=== PATIENT | male | born 1960 | race Caucasian/White ===

== ENCOUNTER 2019-04-17 07:59 | Outpatient (RCR) | payer SELFPAY | END 2019-04-18 00:01 | LOC: WOUND 07:59 | PROVIDERS: Family Provider Nurse Practitioner; Visit Provider Nurse Practitioner Family | DX: I87.2 Venous insufficiency (chronic) (peripheral) (principal); L97.822 Non-pressure chronic ulcer of other part of left lower leg with fat layer exposed; I96 Gangrene, not elsewhere classified | CPT/HCPCS: 11042 ×3; 29581 ==

== ENCOUNTER 2019-05-17 08:05 | Outpatient (RCR) | payer SELFPAY | END 2019-05-19 23:59 | disposition home or self-care (01) | LOC: WOUND 08:05 | PROVIDERS: Family Provider Nurse Practitioner; PCP Nurse Practitioner; Visit Provider Nurse Practitioner Family | DX: I87.2 Venous insufficiency (chronic) (peripheral) (principal); L97.822 Non-pressure chronic ulcer of other part of left lower leg with fat layer exposed | CPT/HCPCS: 11042; 87070; 87077; 87176; 87186; 87205 ==

== ENCOUNTER 2019-06-14 11:02 | Outpatient (RCR) | payer SELFPAY | END 2019-06-17 23:59 | disposition home or self-care (01) | LOC: WOUND 11:02 | PROVIDERS: Family Provider Nurse Practitioner; PCP Nurse Practitioner; Visit Provider Nurse Practitioner Family | DX: I87.2 Venous insufficiency (chronic) (peripheral) (principal); L97.822 Non-pressure chronic ulcer of other part of left lower leg with fat layer exposed | CPT/HCPCS: 11042; 87070; 87077; 87176; 87186; 87205 ==

== ENCOUNTER → 2019-07-05 08:28 | Outpatient (BNVA) | payer SELFPAY | PROVIDERS: Family Provider Nurse Practitioner; PCP Nurse Practitioner; Visit Provider Nurse Practitioner | DX: D69.9 Hemorrhagic condition, unspecified (principal); Z79.01 Long term (current) use of anticoagulants | CPT/HCPCS: 85610 ==

== ENCOUNTER 2019-07-06 14:05 | Outpatient (RCR) | payer SELFPAY | END 2019-07-18 23:59 | disposition home or self-care (01) | LOC: WOUND 14:05 | PROVIDERS: Family Provider Nurse Practitioner; PCP Nurse Practitioner; Visit Provider Nurse Practitioner Family | DX: I87.2 Venous insufficiency (chronic) (peripheral) (principal); L97.822 Non-pressure chronic ulcer of other part of left lower leg with fat layer exposed | CPT/HCPCS: 29581; 87070; 87077; 87176; 87186; 87205; 99214; G0463 ==

== ENCOUNTER 2019-07-20 13:21 | Outpatient (RCR) | payer SELFPAY | END 2019-08-17 23:59 | disposition home or self-care (01) | LOC: WOUND 13:21 | PROVIDERS: Family Provider Nurse Practitioner; PCP Nurse Practitioner; Visit Provider Nurse Practitioner Family | DX: Z09 Encounter for follow-up examination after completed treatment for conditions other than malignant neoplasm (principal) | CPT/HCPCS: 99214; A6545; G0463 ==

== ENCOUNTER → 2019-09-01 10:25 | Outpatient (BNVA) | payer SELFPAY | PROVIDERS: Family Provider Nurse Practitioner; PCP Nurse Practitioner; Visit Provider Nurse Practitioner | DX: D69.9 Hemorrhagic condition, unspecified (principal); Z79.01 Long term (current) use of anticoagulants | CPT/HCPCS: 85610 ==

== ENCOUNTER → 2019-10-10 09:22 | Outpatient (BNVA) | payer SELFPAY | PROVIDERS: Family Provider Nurse Practitioner; PCP Nurse Practitioner; Visit Provider Nurse Practitioner | DX: Z79.01 Long term (current) use of anticoagulants (principal) | CPT/HCPCS: 85610 ==

== ENCOUNTER → 2020-01-19 14:09 | Outpatient (BNVA) | payer SELFPAY | PROVIDERS: Family Provider Nurse Practitioner; PCP Nurse Practitioner; Visit Provider Nurse Practitioner | DX: Z79.01 Long term (current) use of anticoagulants (principal); I10 Essential (primary) hypertension | CPT/HCPCS: 80053; 85610 ==

== ENCOUNTER 2020-01-21 11:05 | Emergency (ER) | payer SELFPAY ==
[2020-01-21 11:13] VITALS: BP 122/64; PULSE 60; RESP 14; TEMP 36.6; O2SAT 97; BMI 36.5
--- NOTE | 2020-01-21 11:26 | CTR_ITS ---
PROCEDURE INFORMATION: Exam: CT Head Without Contrast Exam date and time: 01/21/2020 12:00 PM Age: 59 years old Clinical indication: Pain; Numbness / parasthesia and weakness, facial; Left; Headache not specified; Additional info: Symptoms of acute stroke TECHNIQUE: Imaging protocol: Computed tomography of the head without contrast. Radiation optimization: All CT scans at this facility use at least one of these dose optimization techniques: automated exposure control; mA and/or kV adjustment per patient size (includes targeted exams where dose is matched to clinical indication); or iterative reconstruction. COMPARISON: No relevant prior studies available. RADIATION DOSE METRICS: Total DLP (mGy-cm): 882.67 FINDINGS: Brain: Symmetric prominence of the cortical and cerebellar sulci. No acute cortical infarct, mass effect, or intracranial hemorrhage. Poorly defined hypodensity in the central lizzette (series 2: Image 14 and series 602: Image 21), which can be better characterized with MRI if clinically indicated. Cerebral ventricles: Normal configuration of the ventricles. Bones/joints: No acute calvarial pathology. Paranasal sinuses: No sinus fluid. Mastoid air cells: No mastoid effusion. Soft tissues: Punctate cutaneous calcifications and mild infiltration of subcutaneous fat about the left vertex.. CT/CT head wo con* [id number] IMPRESSION: 1. No acute cortical infarct or intracranial hemorrhage. 2. Poorly defined hypodensity in the central lizzette (series 2: Image 14 and series 602: Image 21), which can be better characterized with MRI if clinically indicated. Radiation Dose CTDIVOL = (mGy): DLP = 882.67 (mGy-cm)
[2020-01-21 11:41] LABS: Basophils % 0.6 %; Eosinophils # 0.1 10^3/uL (0.0-0.8); Hematocrit 39.3 % (42.0-52.0); Hemoglobin 12.5 g/dL (11.7-16.6); Lymphocytes # 1.1 10^3/uL (0.8-4.8); Lymphocytes % 33.1 %; Mean Corpuscular HGB Conc 31.8 g/dL (30.0-36.0); Mean Corpuscular Hemoglobin 28.3 pg (28.0-34.0); Mean Corpuscular Volume 89.1 fL (80-94); Mean Platelet Volume 9.6 fL (7.4-10.4); Monocytes # 0.3 10^3/uL (0.2-0.9); Monocytes % 7.8 %; Neutrophils # 1.83 10^3/uL (1.8-7.7); Neutrophils % 55.2 %; Nucleated Red Blood Cells % 0 %; Platelet Count 157 10^3/cmm (130-400); Red Blood Count 4.41 10^6/uL (4.1-5.3); Red Cell Distribution Width 13.6 % (12.1-15.1); White Blood Count 3.3 10^3/uL (4.0-10.0)
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
[2020-01-21 11:45] LABS: INR 1.18 (0.8-1.2)
[2020-01-21 12:05] VITALS: BP 106/58; PULSE 67; O2SAT 97
[2020-01-21 12:11] LABS: Glucose Point of Care 85 mg/dL (70-110)
[2020-01-21 12:37] LABS: Alanine Aminotransferase 26 U/L (0-41); Albumin Level 4.2 g/dL (3.5-5.2); Alkaline Phosphatase 34 IU/L (40-130); Aspartate Amino Transferase 35 U/L (0-40); Blood Urea Nitrogen 15 mg/dL (8-23); Carbon Dioxide 23 mmol/L (22-29); Chloride 106 mmol/L (98-107); Globulin 2.5 g/dL (1.3-4.6); Glomerular Filtration Rate 98.6 mL/min (90-130); Glucose 85 mg/dL (65-115); Osmolality Calculated 288 mOsm/kg (285-295); Sodium 139 mmol/L (136-145); Total Bilirubin 0.6 mg/dL (0.15-1.2); Total Protein 6.7 g/dL (6.6-8.7)
[2020-01-21 13:30] VITALS: BP 114/68; O2SAT 99
[2020-01-21 14:05] VITALS: BP 125/76; PULSE 53; O2SAT 99
[2020-01-21 14:45] LABS: Add Urine Microscopic? NO
[2020-01-21 14:47] LABS: Bilirubin Urine Neg (Negative); Blood Urine Neg (Negative); Glucose Urine UA Norm (Normal); Ketones Urine Negative (Negative); Leukocyte Esterase Urine Negative (Negative); Nitrate Urine Negative (Negative); Protein Urine Neg (Negative); Specific Gravity, Urine 1.015 (1.005-1.030); Urine Appearance Clear (CLEAR); Urine Color Yellow (Yellow); Urobilinogen Urine Norm (Negative); pH Urine 7 (5-7)
[2020-01-21 14:56] VITALS: BP 117/63; PULSE 66; RESP 17; O2SAT 100
[2020-01-21 14:56] LABS: Amphetamines Screen Urine Negative (Negative); Barbiturates Screen Urine Negative (Negative); Benzodiazepines Screen Urine Negative (Negative); Cocaine Screen Urine Negative (Negative); Opiate Screen Urine Negative (Negative); PCP Screen Urine Negative (Negative); THC Screen Urine Negative (Negative)
== END 2020-01-21 15:10 | disposition home or self-care (01) ==
PROVIDERS: Emergency Provider Student in an Organized Health Care Education/Training Program; PCP Nurse Practitioner
DX: G45.9 Transient cerebral ischemic attack, unspecified (principal); R93.89 Abnormal findings on diagnostic imaging of other specified body structures; Z79.01 Long term (current) use of anticoagulants; I10 Essential (primary) hypertension; Z87.891 Personal history of nicotine dependence
CPT/HCPCS: 12345; 36416; 70450; 80053; 80306; 81003; 82962; 85025; 85610; 85730; 99283; 99284

== ENCOUNTER → 2020-01-23 09:20 | Outpatient (BNVA) | payer SELFPAY | PROVIDERS: PCP Nurse Practitioner; Visit Provider Nurse Practitioner | DX: Z23 Encounter for immunization (principal); Z79.01 Long term (current) use of anticoagulants; G47.9 Sleep disorder, unspecified; R90.89 Other abnormal findings on diagnostic imaging of central nervous system; G45.9 Transient cerebral ischemic attack, unspecified | CPT/HCPCS: 85610 ==

== ENCOUNTER → 2020-02-28 09:53 | Outpatient (BNVA) | payer SELFPAY | PROVIDERS: PCP Nurse Practitioner; Visit Provider Nurse Practitioner | DX: Z86.718 Personal history of other venous thrombosis and embolism (principal); S81.809A Unspecified open wound, unspecified lower leg, initial encounter; Z79.01 Long term (current) use of anticoagulants; I10 Essential (primary) hypertension; S81.802A Unspecified open wound, left lower leg, initial encounter; X58.XXXA Exposure to other specified factors, initial encounter | CPT/HCPCS: 80053; 85025; 85610 ==

== ENCOUNTER 2020-03-04 13:57 | Outpatient (CLI) | payer SELFPAY | END 2020-03-04 13:58 | disposition home or self-care (01) | LOC: WOUND 13:58 | PROVIDERS: PCP Nurse Practitioner; Visit Provider Nurse Practitioner Family | DX: I87.2 Venous insufficiency (chronic) (peripheral) (principal); L97.822 Non-pressure chronic ulcer of other part of left lower leg with fat layer exposed | CPT/HCPCS: 11042; 87070; 87077; 87176; 87186; 87205; A6545; G0463 ==

== ENCOUNTER 2020-03-07 15:16 | Outpatient (CLI) | payer SELFPAY | END 2020-03-07 15:17 | disposition home or self-care (01) | LOC: WOUND 15:17 | PROVIDERS: PCP Nurse Practitioner; Visit Provider Nurse Practitioner Family | DX: I87.2 Venous insufficiency (chronic) (peripheral) (principal); L97.822 Non-pressure chronic ulcer of other part of left lower leg with fat layer exposed | CPT/HCPCS: 29581 ==

== ENCOUNTER 2020-03-11 15:10 | Outpatient (CLI) | payer SELFPAY | END 2020-03-11 15:11 | disposition home or self-care (01) | LOC: WOUND 15:11 | PROVIDERS: PCP Nurse Practitioner; Visit Provider Nurse Practitioner Family | DX: I87.2 Venous insufficiency (chronic) (peripheral) (principal); L97.822 Non-pressure chronic ulcer of other part of left lower leg with fat layer exposed | CPT/HCPCS: 11042 ==

== ENCOUNTER 2020-03-18 14:51 | Outpatient (CLI) | payer SELFPAY | END 2020-03-18 14:52 | disposition home or self-care (01) | LOC: WOUND 14:52 | PROVIDERS: PCP Nurse Practitioner; Visit Provider Thoracic Surgery (Cardiothoracic Vascular Surgery) | DX: I87.2 Venous insufficiency (chronic) (peripheral) (principal); L97.822 Non-pressure chronic ulcer of other part of left lower leg with fat layer exposed | CPT/HCPCS: 11042 ==

== ENCOUNTER 2020-03-25 14:54 | Outpatient (CLI) | payer SELFPAY | END 2020-03-25 14:55 | disposition home or self-care (01) | LOC: WOUND 14:55 | PROVIDERS: PCP Nurse Practitioner; Visit Provider Nurse Practitioner Family | DX: I87.2 Venous insufficiency (chronic) (peripheral) (principal); L97.822 Non-pressure chronic ulcer of other part of left lower leg with fat layer exposed | CPT/HCPCS: 11042 ==

== ENCOUNTER 2020-04-01 14:03 | Outpatient (CLI) | payer SELFPAY | END 2020-04-01 14:04 | disposition home or self-care (01) | LOC: WOUND 14:04 | PROVIDERS: PCP Nurse Practitioner; Visit Provider Nurse Practitioner Family | DX: I87.2 Venous insufficiency (chronic) (peripheral) (principal); L97.822 Non-pressure chronic ulcer of other part of left lower leg with fat layer exposed | CPT/HCPCS: 11042 ==

== ENCOUNTER 2020-04-08 14:27 | Outpatient (CLI) | payer SELFPAY | END 2020-04-08 14:28 | disposition home or self-care (01) | LOC: WOUND 14:29 | PROVIDERS: PCP Nurse Practitioner; Visit Provider Nurse Practitioner Family | DX: I87.2 Venous insufficiency (chronic) (peripheral) (principal); L97.822 Non-pressure chronic ulcer of other part of left lower leg with fat layer exposed | CPT/HCPCS: 11042; 87070; 87077; 87176; 87186; 87205 ==

== ENCOUNTER 2020-04-17 14:58 | Outpatient (CLI) | payer SELFPAY | END 2020-04-17 14:59 | disposition home or self-care (01) | LOC: WOUND 14:58 | PROVIDERS: PCP Nurse Practitioner; Visit Provider Nurse Practitioner Family | DX: I87.2 Venous insufficiency (chronic) (peripheral) (principal); L97.822 Non-pressure chronic ulcer of other part of left lower leg with fat layer exposed | CPT/HCPCS: 11042 ==

== ENCOUNTER 2020-04-25 09:34 | Outpatient (CLI) | payer SELFPAY | END 2020-04-25 09:35 | disposition home or self-care (01) | LOC: WOUND 09:35 | PROVIDERS: PCP Nurse Practitioner; Visit Provider Nurse Practitioner Family | DX: I87.2 Venous insufficiency (chronic) (peripheral) (principal); L97.822 Non-pressure chronic ulcer of other part of left lower leg with fat layer exposed | CPT/HCPCS: 11042 ==

== ENCOUNTER 2020-05-02 08:56 | Outpatient (CLI) | payer SELFPAY | END 2020-05-02 08:57 | disposition home or self-care (01) | LOC: WOUND 08:57 | PROVIDERS: PCP Nurse Practitioner; Visit Provider Nurse Practitioner Family | DX: I87.2 Venous insufficiency (chronic) (peripheral) (principal); L97.822 Non-pressure chronic ulcer of other part of left lower leg with fat layer exposed | CPT/HCPCS: 11042 ==

== ENCOUNTER 2020-05-09 08:45 | Outpatient (CLI) | payer SELFPAY | END 2020-05-09 08:46 | disposition home or self-care (01) | LOC: WOUND 08:45 | PROVIDERS: PCP Nurse Practitioner; Visit Provider Nurse Practitioner Family | DX: I87.2 Venous insufficiency (chronic) (peripheral) (principal); L97.822 Non-pressure chronic ulcer of other part of left lower leg with fat layer exposed | CPT/HCPCS: 11042 ==

== ENCOUNTER 2020-05-10 20:54 | Observation (INO) | payer SELFPAY ==
[2020-05-10 21:00] VITALS: BP 154/89; PULSE 77; RESP 20; TEMP 36.7; O2SAT 98; BMI 35.6
--- NOTE | 2020-05-10 21:03 | CTR_ITS ---
PROCEDURE INFORMATION: Exam: CT Head Without Contrast Exam date and time: 05/10/2020 9:05 PM Age: 59 years old Clinical indication: Speech disturbance; Patient HX: Slurred speech, left side facial droop; Additional info: AMS TECHNIQUE: Imaging protocol: Computed tomography of the head without contrast. Radiation optimization: All CT scans at this facility use at least one of these dose optimization techniques: automated exposure control; mA and/or kV adjustment per patient size (includes targeted exams where dose is matched to clinical indication); or iterative reconstruction. Other technique: STROKE PROTOCOL was implemented. COMPARISON: CT head wo con* [id number] 01/21/2020 12:13 PM RADIATION DOSE METRICS: Total DLP (mGy-cm): 1019.95 FINDINGS: Brain: There is volume loss.There is no evidence of infarct, alex-white matter differentiation is preserved. There is no hemorrhage or extra-axial collection. There is no mass. Cerebral ventricles: There is no hydrocephalus. Bones/joints: Unremarkable. No acute fracture. Paranasal sinuses: Visualized sinuses are unremarkable. No fluid levels. Mastoid air cells: Visualized mastoid air cells are well aerated. Soft tissues: Unremarkable. CT/CT head wo con* [id number] IMPRESSION: No intracranial lesion or injury and no change from prior scan. ASSESSMENT: ASPECTS ([place] Stroke Program Early CT Score) is 10. Radiation Dose CTDIVOL = (mGy): DLP = 1019.95 (mGy-cm)
--- NOTE | 2020-05-10 21:03 | XRR_ITS ---
PROCEDURE INFORMATION: Exam: XR Chest, 1 View Exam date and time: 05/10/2020 9:17 PM Age: 59 years old Clinical indication: Shortness of breath; Additional info: AMS TECHNIQUE: Imaging protocol: XR of the chest Views: 1 view. COMPARISON: CR Chest 1 [place] [id number] 11/10/2018 12:23 PM FINDINGS: Lungs: Unremarkable. No consolidation. Pleural space: Unremarkable. No pleural effusion. No pneumothorax. Heart/Mediastinum: Unremarkable. No cardiomegaly. Bones/joints: Unremarkable. XR/XR chest 1V portable [id number] IMPRESSION: No acute findings.
--- NOTE | 2020-05-10 21:04 | ECG_ITS ---
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
[2020-05-10 21:21] LABS: Basophils % 0.6 %; Eosinophils # 0.1 10^3/uL (0.0-0.8); Hematocrit 40.3 % (42.0-52.0); Hemoglobin 12.8 g/dL (11.7-16.6); Lymphocytes # 1.7 10^3/uL (0.8-4.8); Lymphocytes % 34.3 %; Mean Corpuscular HGB Conc 31.8 g/dL (30.0-36.0); Mean Corpuscular Hemoglobin 27.8 pg (28.0-34.0); Mean Corpuscular Volume 87.4 fL (80-94); Mean Platelet Volume 9.3 fL (7.4-10.4); Monocytes # 0.3 10^3/uL (0.2-0.9); Monocytes % 6.8 %; Neutrophils # 2.81 10^3/uL (1.8-7.7); Neutrophils % 56.1 %; Nucleated Red Blood Cells % 0 %; Platelet Count 150 10^3/cmm (130-400); Red Blood Count 4.61 10^6/uL (4.1-5.3); Red Cell Distribution Width 14.1 % (12.1-15.1)
[2020-05-10 21:36] LABS: ABG PCO2 41.2 mmHg (35-45); ABG PH Result 7.43 (7.35-7.45); Arterial Blood Gas Hematocrit 39.6 % (42-52); Base Excess ABG 2.6 mmol/L (-2.0-2.0); Blood Gas Allen Test Pos; Blood Gas Sample Site Radial, right; Blood Gas Sample Type Arterial; HCO3 ABG 27.3 mmol/L (22-26); PO2 ABG 92.7 mmHg (80.0-100.0)
[2020-05-10 21:43] LABS: Alanine Aminotransferase 21 U/L (0-41); Albumin Level 4.2 g/dL (3.5-5.2); Alkaline Phosphatase 40 IU/L (40-130); Anion Gap 15.4 (5-19); Aspartate Amino Transferase 19 U/L (0-40); Blood Urea Nitrogen 16 mg/dL (8-23); Carbon Dioxide 26 mmol/L (22-29); Chloride 100 mmol/L (98-107); Globulin 2.4 g/dL (1.3-4.6); Glomerular Filtration Rate 76.2 mL/min (90-130); Glucose 150 mg/dL (65-115); Magnesium 2.1 mg/dL (1.7-2.3); Osmolality Calculated 290 mOsm/kg (285-295); Potassium 3.4 mmol/L (3.5-5.1); Sodium 138 mmol/L (136-145); Total Bilirubin 0.4 mg/dL (0.15-1.2); Total Protein 6.6 g/dL (6.6-8.7)
[2020-05-10 21:44] VITALS: BP 140/74; PULSE 77; RESP 13; O2SAT 95
[2020-05-10 21:45] LABS: Troponin(5th) Baseline 9 ng/L (0-15)
[2020-05-10 21:49] LABS: Alcohol Level < 10 mg/dL (0-10)
[2020-05-10 22:23] LABS: Add Urine Microscopic? NO
[2020-05-10 22:27] LABS: Bilirubin Urine Neg (Negative); Blood Urine Neg (Negative); Glucose Urine UA Norm (Normal); Ketones Urine Negative (Negative); Leukocyte Esterase Urine Negative (Negative); Nitrate Urine Negative (Negative); Protein Urine Neg (Negative); Specific Gravity, Urine 1.015 (1.005-1.030); Urine Appearance Clear (CLEAR); Urine Color Yellow (Yellow); Urobilinogen Urine 1 mg/dL (Negative); pH Urine 6.5 (5-7)
[2020-05-10 22:57] VITALS: BP 134/66; PULSE 73; RESP 15; O2SAT 96
--- NOTE | 2020-05-10 23:04 | ECG_ITS ---
[facility] Test Date: 2020-05-10 Pat Name: Zeb Bowles Department: Room: Gender: Male Tobacco Baler: : 1960 Requested By: Benedict Orantes Order Number: [id number] Reading MD: KG DICKEY Measurements Intervals [place] Rate: 70 P: 18 HI: 209 QRS: 51 QRSD: 107 T: 54 QT: 389 QTc: 420 Interpretive Statements SINUS RHYTHM Compared to ECG 05/10/2020 21:35:38 No significant changes Electronically Signed On 05-11-2020 18:18:08 KITCHEN LEAD by KG DICKEY [email or web address]
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
--- NOTE | 2020-05-10 23:13 | CTR_ITS ---
PROCEDURE INFORMATION: Exam: CT Angiography Head With Contrast Exam date and time: 05/10/2020 1:12 AM Age: 59 years old Clinical indication: Speech disturbance and weakness; Patient HX: Slurred speech with left facial droop. ; Additional info: Stroke TECHNIQUE: Imaging protocol: Computed tomography angiography of the head with intravenous contrast. 3D rendering (Not supervised by radiologist): MIP and/or 3D reconstructed images were created by the technologist. Radiation optimization: All CT scans at this facility use at least one of these dose optimization techniques: automated exposure control; mA and/or kV adjustment per patient size (includes targeted exams where dose is matched to clinical indication); or iterative reconstruction. Contrast material: OMNI 350; Contrast volume: 95 ml; Contrast route: INTRAVENOUS (IV); COMPARISON: CT head wo con* [id number] 05/10/2020 9:06 PM RADIATION DOSE METRICS: Total DLP (mGy-cm): 2696.16 FINDINGS: ANTERIOR CIRCULATION: Right internal carotid artery: Unremarkable. Intracranial segment is patent with no significant stenosis. No aneurysm. Right middle cerebral artery: Unremarkable. No occlusion or significant stenosis. No aneurysm. Right anterior cerebral artery: Unremarkable. No occlusion or significant stenosis. No aneurysm. Left internal carotid artery: Unremarkable. Intracranial segment is patent with no significant stenosis. No aneurysm. Left middle cerebral artery: Unremarkable. No occlusion or significant stenosis. No aneurysm. Left anterior cerebral artery: Unremarkable. No occlusion or significant stenosis. No aneurysm. POSTERIOR CIRCULATION: Right vertebral artery: Unremarkable. No occlusion or significant stenosis. No aneurysm. Left vertebral artery: Unremarkable. No occlusion or significant stenosis. No aneurysm. Basilar artery: Unremarkable. No occlusion or significant stenosis. No aneurysm. Right posterior cerebral artery: Unremarkable. No occlusion or significant stenosis. No aneurysm. Left posterior cerebral artery: Unremarkable. No occlusion or significant stenosis. No aneurysm. Brain: No definite mass, mass effect, or midline shift. Cerebral ventricles: No ventriculomegaly. Bones/joints: Unremarkable. No acute fracture. Soft tissues: Unremarkable. IMPRESSION: No large vessel stenosis or occlusion. PROCEDURE INFORMATION: Exam: CT Angiography Neck With Contrast Exam date and time: 05/10/2020 1:12 AM Age: 59 years old Clinical indication: Speech disturbance and weakness; Patient HX: Slurred speech with left facial droop. ; Additional info: Stroke TECHNIQUE: Imaging protocol: Computed tomography angiography of the neck with intravenous contrast. 3D rendering (Not supervised by radiologist): MIP and/or 3D reconstructed images were created by the technologist. Radiation optimization: All CT scans at this facility use at least one of these dose optimization techniques: automated exposure control; mA and/or kV adjustment per patient size (includes targeted exams where dose is matched to clinical indication); or iterative reconstruction. Contrast material: OMNI 350; Contrast volume: 95 ml; Contrast route: INTRAVENOUS (IV); COMPARISON: CT head wo con* [id number] 05/10/2020 9:06 PM RADIATION DOSE METRICS: Total DLP (mGy-cm): 2696.16 FINDINGS: Right common carotid artery: No stenosis. No dissection or occlusion. Right internal carotid artery: No stenosis of the extracranial segment. No dissection or occlusion. Right external carotid artery: No occlusion or stenosis of the origin. Right vertebral artery: No stenosis. No dissection or occlusion. Left common carotid artery: No stenosis. No dissection or occlusion. Left internal carotid artery: No stenosis of the extracranial segment. No dissection or occlusion. Left external carotid artery: No occlusion or stenosis of the origin. Left vertebral artery: No stenosis. No dissection or occlusion. Bones/joints: No acute fracture. Soft tissues: Normal. No significant soft tissue swelling. CT/CT angio headneck* [id number] IMPRESSION: No stenosis or occlusion. REFERENCES: NASCET CRITERIA. The degree of internal carotid artery stenosis is based on NASCET criteria. Normal is no stenosis. Mild is less than 50% stenosis. Moderate is 50-69% stenosis. Severe is 70% to 99% stenosis. Total occlusion is no detectable patent lumen. Radiation Dose CTDIVOL = (mGy): DLP = 2696.16~2696.16 (mGy-cm)
--- NOTE | 2020-05-10 23:18 | PC.NURSE ---
EKG done at 2315 and shown to ER doctor
[2020-05-10 23:19] VITALS: BP 90/45; PULSE 70; RESP 17; O2SAT 96
[2020-05-10 23:39] LABS: Troponin 5 2HR 9.38 ng/L (0-15); Troponin 5 2HR Delta 0.38 ABS# (0-10)
[2020-05-10 23:49] LABS: Ammonia 37 umol/L (16-60)
[2020-05-11] VITALS (9 sets, daily range): BP systolic 95–137; BP diastolic 51–80; PULSE 60–71; RESP 16–18; TEMP 36.3–37.2; O2SAT 95–99
[2020-05-11 00:53] LABS: D Dimer 0.51 ug/mIFEU (0-0.59)
[2020-05-11 00:56] LABS: Thyroid Stimulating Hormone 2.57 uIU/mL (0.27-4.20)
[2020-05-11] MEDS: enoxaparin 120 mg/0.8 mL Syringe SUBCUT (01:11)
[2020-05-11] MEDS: potassium chloride ER 20 mEq Tablet PO (01:11)
[2020-05-11] MEDS: iohexol 350 mg/mL 100 mL Btl IV (01:40)
[2020-05-11] MEDS: sodium chloride 0.9% 1,000 ML 999 ML IV (01:45)
--- NOTE | 2020-05-11 03:04 | ECG_ITS ---
[facility] Test Date: 2020-05-11 Pat Name: Zeb Bowles Department: Room: 255 Gender: Male Curing Supervisor: : 1960 Requested By: Benedict Orantes Order Number: [id number] Reading MD: KG DICKEY Measurements Intervals [place] Rate: 62 P: 1 AK: 210 QRS: 48 QRSD: 91 T: 48 QT: 395 QTc: 404 Interpretive Statements SINUS RHYTHM WITH FIRST DEGREE AV BLOCK WARNING: DATA QUALITY MAY AFFECT INTERPRETATION Compared to ECG 05/10/2020 23:11:33 First degree AV block now present Electronically Signed On 05-11-2020 18:18:00 DOUBLE SPINDLE SHAPER OPERATOR by KG DICKEY [id number]
[2020-05-11 04:59] LABS: Troponin 5 6HR 9.67 ng/L (0-15); Troponin 5 6HR Delta 0.67 ng/L (0-12)
--- NOTE | 2020-05-11 09:46 | PC.PHAR ---
PTS STATES THE PT TAKES THE MEDICATIONS ENTERED-PTS STATES THE PT TAKES WARFARIN 11MG PO DAILY ON MON,TUES,WED,THURS,FRI AND 12MG PO DAILY ON SAT AND SUN AND HAS BEEN TAKING IT LIKE THAT FOR 2 YEARS-Cherry EL WROTE RX ON 04/10/2020 FOR 1-2 tab with 5mg tab to = 11mg 2 days and 12mg 5 days PTS STATES THATS NOT HOW THE PT HAS BEEN TAKING
[2020-05-11] MEDS: aspirin 81 mg EC Tablet PO (10:17)
[2020-05-11] MEDS: clopidogrel 75 mg Tablet PO (10:17)
[2020-05-11] MEDS: atorvastatin 40 mg Tablet 80 MG PO (10:17)
[2020-05-11] MEDS: warfarin 5 mg Tablet 10 MG PO (10:18)
[2020-05-11] MEDS: trazodone 50 mg Tablet PO (10:18)
[2020-05-11] MEDS: escitalopram 10 mg Tablet PO (10:18)
[2020-05-11] MEDS: ALPRAZolam 0.25 mg Tablet PO (10:43)
--- NOTE | 2020-05-11 10:45 | MRR_ITS ---
PROCEDURE INFORMATION: Exam: MR Head Without Contrast Exam date and time: 05/11/2020 10:45 AM Age: 59 years old Clinical indication: Patient HX: Stroke like symptoms. Slurred speech and left side facial droop TECHNIQUE: Imaging protocol: MR of the head without contrast. COMPARISON: CT head wo con* [id number] 05/10/2020 9:06 PM FINDINGS: Brain: There is mild chronic atrophy. On the diffusion-weighted images there is a punctate focus of abnormal signal in the left thalamus on series 7/image 15 and another tiny focus of increased signal intensity in the white matter along the left lateral ventricle posteriorly on series 7/image 16. These could represent very tiny acute nonhemorrhagic infarcts. No hemorrhage. No significant white matter disease. No edema. Cerebral ventricles: Normal. No ventriculomegaly. Bones/joints: Unremarkable. Paranasal sinuses: Normal as visualized. No acute sinusitis. Mastoid air cells: Normal as visualized. No mastoid effusion. Orbital cavity: Unremarkable. Soft tissues: Unremarkable. MR/MR head wo con* [id number] IMPRESSION: There are 2 punctate tiny foci of abnormal signal intensity on the diffusion-weighted scans in the left thalamus and along the left lateral ventricle posteriorly. These may represent tiny acute nonhemorrhagic infarcts. No other significant abnormalities are seen.
--- NOTE | 2020-05-11 12:29 | USCV_ITS ---
Zeb Bowles Age: 59 Gender: M : 1960 Exam Date: 05/11/2020 14:05 Ordering Phys: Flash Mendoza MD Technologist: Mag Dalton Exam Location: [facility] – [place], [place] Indication: cva BP: 115 / 73 HR: 72 Rhythm: Sinus Technical Quality: Fair MEASUREMENTS (Male / Female) Normal Values 2D ECHO LV Diastolic Diameter PLAX 4.4 cm 4.2 - 5.9 / 3.9 - 5.3 cm LV Systolic Diameter PLAX 2.9 cm LV Chamber Size 4.9 cm IVS Diastolic Thickness 2.1 cm 0.6 - 1.0 / 0.6 - 0.9 cm IVS Systolic Thickness 2.5 cm LVPW Diastolic Thickness 1.4 cm 0.6 - 1.0 / 0.6 - 0.9 cm LVPW Systolic Thickness 1.8 cm RV Chamber Size 2.5 cm LVOT Diameter 2.2 cm LV Ejection Fraction 2D Teich 61.4 % LV Ejection Fraction MOD 2C 72.2 % LV Ejection Fraction 2C AL 72.5 % LA Diameter 3.3 cm LA Width 3.6 cm LA Height 6.1 cm RA Width 2.5 cm RA Height 5.9 cm Aorta at Sinotubular Diameter 3.6 cm M-MODE LV Diastolic Diameter MM 4.8 cm 4.2 - 5.9 / 3.9 - 5.3 cm LV Systolic Diameter MM 2.6 cm LV Ejection Fraction MM Teich 78.3 % IVS Diastolic Thickness MM 0.9 cm 0.6 - 1.0 / 0.6 - 0.9 cm IVS Systolic Thickness MM 1.8 cm LVPW Diastolic Thickness MM 1.6 cm 0.6 - 1.0 / 0.6 - 0.9 cm LVPW Systolic Thickness MM 2.3 cm RV Diastolic Diameter MM 1.9 cm Aortic Annulus Diameter 3.7 cm LA Ao Ratio MM 1.1 MV E Point Septal Separation 0.9 cm DOPPLER AV Peak Velocity 132.0 cm/s LVOT Peak Velocity 98.0 cm/s AV Area Cont Eq vti 2.8 cm squared AV Area Cont Eq pk 2.7 cm squared MV Area PHT 2.6 cm squared Mitral E to A Ratio 1.0 MV E' Velocity 47.5 cm/s Mitral E to MV E' Ratio 8.5 Mitral E to LV E' Lateral Ratio 7.4 Mitral E to LV E' Septal Ratio 10.0 TV Peak E Velocity 69.0 cm/s PV Peak Velocity 76.0 cm/s RV Acceleration Time 0.1 s RV Ejection Time 0.3 s RV AcT/ET 0.4 FINDINGS Left Ventricle Normal left ventricular cavity size. Normal left ventricular systolic function. No regional wall motion abnormalities. Left ventricular ejection fraction is estimated at 65%. Grade I/IV diastolic dysfunction (abnormal relaxation filling pattern), normal to mildly elevated filling pressures. Right Ventricle The right ventricle is normal in size and function. RVSP could not be calculated due to incomplete tricuspid regurgitation velocity profile. Right Atrium The right atrium is normal in size. Left Atrium The left atrium is normal in size. Mitral Valve Structurally normal mitral valve without significant stenosis or prolapse. There is no mitral regurgitation. Aortic Valve Structurally normal aortic valve without significant sclerosis or stenosis. There is trace aortic regurgitation. Tricuspid Valve Structurally normal tricuspid valve without significant stenosis or regurgitation. Pulmonary artery systolic pressure is normal. Pulmonic Valve Structurally normal pulmonic valve without significant stenosis. There is no pulmonic regurgitation. Pericardium Normal pericardium without effusion. Aorta Normal ascending aorta dimension. CONCLUSIONS 1-Normal left ventricular cavity size. Normal left ventricular systolic function. No regional wall motion abnormalities. Left ventricular ejection fraction is estimated at 65%. Grade I/IV diastolic dysfunction (abnormal relaxation filling pattern), normal to mildly elevated filling pressures. 2-There is no pericardial effusion. 3-No significant valve abnormalities. 4-The right ventricle is normal in size and function. RVSP could not be calculated due to incomplete tricuspid regurgitation velocity profile. 5-Right atrial pressure is around 5 mm of mercury. 6-No significant change since the prior echocardiogram study of 10/08/2017. Ann Mcpherson MD (Electronically Signed) Final Date: 11 May 2020 15:57 S
[2020-05-11] MEDS: warfarin 3 mg Tablet PO (13:11)
--- NOTE | 2020-05-11 15:11 | PC.PT ---
PT note; attempted evaluation of patient proximally 1220, patient very fatigue post testing, and came in the hospital last night at midnight, patient has received Ativan for MRI, reattempted approximately 3 PM, patient sleeping soundly at that time, will reattempt evaluation tomorrow
[2020-05-11 17:04] LABS: Estmated Average Glucose 111; Hemoglobin A1C 5.5 % (4.0-6.0)
[2020-05-11] MEDS: LORazepam 2 mg/mL INJ 1 mL 1 MG IVP (17:08)
--- NOTE | 2020-05-11 20:02 | PM.PN ---
Subjective Subjective: Interval history: He is feeling little bit better. He is somewhat groggy after receiving anxiety medications to be able to complete the MRI study. He feels that his left side is a little bit stronger. His left upper extremity somewhat weaker compared to the left leg. Appears lower extremity has recovered more strength. headache, vision changes. Denies any denies any numbness. Denies chest pain or pressure, shortness of breath. Vitals/I&O/Wt Last Vital Signs Temp 98.2 F 05/11/20 19:41 Pulse 67 05/11/20 19:41 Resp 18 05/11/20 19:41 BP 137/75 05/11/20 19:41 Pulse Ox 95 05/11/20 19:41 05/11/20 05/11/20 05/11/20 06:59 14:59 22:59 Intake Total 50 / 50 240 / 240 240 / 480 Output Total 240 / 240 1525 / 1525 Balance -190 / -190 -1285 / -1285 240 / -1045 Weight last 48 hrs Weight 129.274 kg Physical Exam Const: COMMON NORMALS: no acute distress and patient oriented x3 OTHER: Groggy HENMT: COMMON NORMALS: oropharynx normal Neck/C-Spine: COMMON NORMALS: no meningeal signs and no JVD Resp: COMMON NORMALS: normal respiratory effort and clear to auscultation bilaterally AUSCULTATION: clear to auscultation bilaterally Cardio: COMMON NORMALS: no JVD, regular rhythm, S1 normal heart sound present, S2 normal heart sound present and No murmurs present (Cardio) RHYTHM: regular rhythm HEART SOUNDS: S1 normal heart sound present and S2 normal heart sound present GI: COMMON NORMALS: Normal to inspection, nondistended, normoactive bowel sounds present, Soft to palpation and non-tender PALPATION: Yes Soft to palpation Extremity: COMMON NORMALS: no joint enlargement and no pedal edema Neuro: COMMON NORMALS: patient oriented x3 and moves all extremities MENINGEAL SIGNS: Yes no meningeal signs COORDINATION/BALANCE: [id number]-[id number] test normal (With little bit more effort on the left side due to weakness) SPEECH: speech normal SENSORY EXAM: Yes extremities (Normal) and Normal double simultaneous stimulation for sensation MOTOR EXAM: Abnormal motor strength present (3+/5 on the left, minute if any pronator drift. 4/5 left lower extremity.) COORDINATION: wkherg-do-amny test normal (With little bit more effort on the left side due to weakness) OTHER: Visual guerrero full to confrontation. Noted minimal nystagmus, although he denies any vertigo. Skin: COMMON NORMALS: no rashes or lesions noted GENERAL SKIN EXAM: no rashes or lesions noted Data : 05/10/20 21:10 05/10/20 21:10 A&P Assessment and plan (1) Cerebrovascular accident: 2 small CVA identified on MRI brain, on the diffusion-weighted scans and left thalamus and along the left lateral ventricle posteriorly. It appears he has had a CVA several months ago. Discussed with him and his in setting of CVA initiation of aspirin, statin. We have not seen atrial fibrillation so far, although he is supposed to be on anticoagulation regardless due to VTE history. We did discuss that he has had quite significant time out of therapeutic window and I brought up consideration of DOAC. His intracranial and neck vessels are patent as per CTA. We are checking A1c as he has some hyperglycemia, although A1c appears to be normal. Blood pressure is not elevated, but appears to have some episodes of hypertension, Despite otherwise some soft blood pressures. Highest blood pressure 154/89 here. Discussed with him close monitoring of blood pressures, treatment district targets to prevent additional CVA in the future. We obtain TTE, discussed grade 1 diastolic dysfunction. No obvious thrombus identified. He does not have convincing evidence of embolic CVA, however, consideration may be given to ABELARDO as discussed with him and his . Possibly additional monitoring with 21-day monitor. Encouraged him to follow-up with urology who may on reassessment guide additional evaluation which may be beneficial. They verbalized understanding. Will be following up. He will be staying overnight for additional observation as he has been groggy after receiving Ativan after Xanax was not sufficient for treatment of anxiety during MRI study. In the meantime we will monitor blood pressures, cardiac rhythm. Request outpatient PT and OT. Status: Acute (2) Confusion: Resolved. Suspected related to CVA. Monitor mental status. Status: Acute Additional A&P Information Hypotension resolved. Hold diuretics for now. D-dimer was normal. 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 Additional 3 mg Coumadin today. Increase dosing to 12 mg daily for now. Follow-up with primary care provider for reassessment, additional dose adjustment. Hypokalemia: Repleted Attestations Medical Necessity Statement*: Additional evaluation following CVA and monitoring of mental status, blood pressures, heart rhythm, disposition planning with planned discharge in the morning. Coding Level of Care Code Acute Operations Accountant for Elliot Reed Diagnoses Cerebrovascular accident I63.9 Confusion R41.0
[2020-05-12] VITALS: BP 109/61; PULSE 66; RESP 16; TEMP 36.7; O2SAT 95
[2020-05-12 04:00] VITALS: BP 137/73; PULSE 65; RESP 16; TEMP 36.7; O2SAT 97
[2020-05-12 05:53] LABS: INR 1.25 (0.8-1.2)
[2020-05-12 07:15] VITALS: BP 127/69; PULSE 68; RESP 17; TEMP 36.3; O2SAT 95
[2020-05-12] MEDS: atorvastatin 40 mg Tablet 80 MG PO (08:08)
[2020-05-12] MEDS: clopidogrel 75 mg Tablet PO (08:09)
[2020-05-12] MEDS: aspirin 81 mg EC Tablet PO (08:09)
[2020-05-12] MEDS: escitalopram 10 mg Tablet PO (08:09)
[2020-05-12] MEDS: trazodone 50 mg Tablet PO (08:09)
[2020-05-12] MEDS: warfarin 10 mg Tablet PO (09:01)
[2020-05-12] MEDS: warfarin 3 mg Tablet 6 MG PO (09:01)
[2020-05-12 11:07] VITALS: BP 127/71; PULSE 77; RESP 18; TEMP 36.5; O2SAT 94
[2020-05-12 11:22] VITALS: BP 127/71; PULSE 77; RESP 18; TEMP 36.5; O2SAT 94
--- NOTE | 2020-05-12 14:08 | P.DS_ITS ---
Discharge Providers Date of Admission: 05/10/20 23:04 Date of Discharge: May 12, 2020 Attending Provider at Admission: Ann Sheehan MD Attending Provider at Discharge: Flash Mendoza Primary Care Provider: DEVIN Mcdermott Diagnoses at Discharge Discharge Diagnosis (1) Cerebrovascular accident: Status: Acute (2) Confusion: Status: Acute Reason for Visit Reason for Visit: stroke like symptoms Hospital Course Hospital Course Very pleasant 59-year-old gentleman was assessed following noted weakness in the left side, as well as few additional preceding no specific symptoms including some subjective light flashes, headache, and soft speech. Presentation noted initially hypotensive, initially appeared dehydrated. With unremarkable chest x-ray, EKG showing sinus rhythm, with potassium 3.4, normal ABG. Noted subtherapeutic INR. Head CT was obtained and did not show any intracranial lesion or injury. It had been more than 24 hours from the onset of symptoms, he did not qualify for acute intervention for acute CVA. CT angiogram of the head and neck was obtained, without finding of intracranial or neck vessel stenosis. He was additionally assessed by MRI brain with finding of 2 punctate tiny foci of abnormal signal intensity on the diffusion weighted scans in the left thalamus and along the left lateral ventricle posteriorly. Thought to be tiny acute nonhemorrhagic infarcts. His left-sided weakness persisted somewhat, although with improvement. He did well on swallow evaluation. On physical therapy evaluation he would benefit from outpatient physical therapy, and is provided also with a detailed home exercise program. With regards to stroke etiology and secondary prophylaxis, it is not entirely clear what the cause of his stroke was. His blood pressures although mostly soft/normal in the hospital, were noted to have occasional spikes, as high as 150/89, and so was discussed with him and spouse, possible episodic hypertension may play a role. A1c was assessed, and is not suggestive of underlying diabetes. He was monitored on telemetry, without finding of atrial fibrillation. He is supposed to be on anticoagulation at baseline due to history of VTE, presence of IVC filter. His warfarin, however, has been noted repeatedly subtherapeutic. We adjusted his warfarin dose here, gave larger dose yesterday, however, as discussed with him and his due to quite significant time outside of therapeutic window anticoagulation will benefit from change to possibly a DOAC. A prescription for Eliquis is given to him, and he if able to fill it understands to take the Eliquis instead, or if unable to fill it to then continue warfarin. They understand not to take both medications together. In case he cannot obtain Eliquis, he is instructed to increase warfarin dose for 3 days to 50 mg, subsequently resume at 12 mg daily, and schedule additional appointment for reassessment of INR early next week. Please follow-up regarding anticoagulation at the post discharge appointment. For secondary CVA prophylaxis he is also started on aspirin, and is also initiated on statin. As discussed with him and his he also referred to neurology for evaluation after a CVA, and for recommendations whether ABELARDO and/or prolonged cardiac monitoring may be of benefit. His echocardiogram showed normal ejection fraction, grade 1 diastolic dysfunction, which again may raise concern regarding intermittent hypertension. Physical Exam Const: COMMON NORMALS: no acute distress and patient oriented x3 OTHER: Awake, alert, pleasant. Reports he is feeling much better. About to work with physical therapy. HENMT: COMMON NORMALS: oropharynx normal Neck/C-Spine: COMMON NORMALS: no meningeal signs and no JVD Resp: COMMON NORMALS: normal respiratory effort and clear to auscultation bilaterally AUSCULTATION: clear to auscultation bilaterally Cardio: COMMON NORMALS: no JVD, regular rhythm, S1 normal heart sound present, S2 normal heart sound present and No murmurs present (Cardio) RHYTHM: regular rhythm HEART SOUNDS: S1 normal heart sound present and S2 normal heart sound present GI: COMMON NORMALS: Normal to inspection, nondistended, normoactive bowel sounds present, Soft to palpation and non-tender PALPATION: Yes Soft to palpation Extremity: COMMON NORMALS: no joint enlargement and no pedal edema Neuro: COMMON NORMALS: patient oriented x3 and moves all extremities MENINGEAL SIGNS: Yes no meningeal signs COORDINATION/BALANCE: cgzkvt-cm-dqjc test normal (With little bit more effort on the left side due to weakness) SPEECH: speech normal SENSORY EXAM: Yes extremities (Normal) and Normal double simultaneous stimulation for sensation MOTOR EXAM: Abnormal motor strength present (3-4/5 on the left, minute if any pronator drift. 4/5 left lower extremity.) COORDINATION: bjcxca-ih-uhvo test normal (With little bit more effort on the left side due to weakness) OTHER: Visual guerrero full to confrontation. Noted minimal nystagmus, although he denies any vertigo. Skin: COMMON NORMALS: no rashes or lesions noted GENERAL SKIN EXAM: no rashes or lesions noted Discharge Data Data Completed and Pending: Completed Studies During Hospitalization Category Date Time Status CT angio headneck * [id number] Stat Cat Scan 05/10/20 23:[address] head wo con* [id number] Urgent Cat Scan 05/10/20 21:03 Completed XR chest 1V tosin ble [id number] Urgent Exams 05/10/20 21:03 Completed MR head wo con* 7 [id number] Routine MRI 05/11/20 10:45 Completed CV echo complete* [id number] Routine Ultrasound 05/11/20 12:29 Completed Labs from last 24 hours 05/12/20 05/11/20 04:11 03:52 PT 16.10 H INR 1.25 H Estimat Average Gl ucose 111 Hemoglobin A1c 5.5 Vitals: Last Vital Signs Temp 97.7 F 05/12/20 11:22 Pulse 77 05/12/20 11:22 Resp 18 05/12/20 11:22 BP 127/71 05/12/20 11:22 Pulse Ox 94 05/12/20 11:22 Discharge Plan Discharge Patient Disposition: Home Condition: Stable Prescriptions: New atorvastatin 40 mg Tablet 80 mg PO DAILY Qty: 30 RF: 0 aspirin 81 mg Tablet,Delayed Release (Dr/Ec) 81 mg PO DAILY Qty: 30 RF: 0 Jantoven 3 mg Tablet 12 mg PO DAILY@1400 Qty: 120 RF: 0 apixaban 5 mg (74 tabs) tablets,dose pack See Rx Instructions .ROUTE .COMPLEX Qty: 74 RF: 3 Continued lisinopril 10 mg tablet 10 mg PO DAILY Qty: 30 RF: 5 magnesium oxide 400 mg magnesium capsule 400 mg PO BID Qty: 60 RF: 2 trazodone 50 mg tablet 50 mg PO DAILY@20 RF: 0 potassium gluconate 595 mg (99 mg) Tablet 595 mg PO DAILY@20 RF: 0 Centrum Men 8 mg iron- 200 mcg-600 mcg Tablet 1 tab PO DAILY RF: 0 escitalopram oxalate 10 mg tablet RF: 0 Discontinued chlorthalidone 25 mg tablet 25 - 50 mg PO DAILY@20 RF: 0 warfarin 1 mg tablet See Rx Instructions .ROUTE .COMPLEX RF: 0 Discharge Orders: Discharge Order (Routine); Ordered 05/12/20 Ordered By: Flash Mendoza Other Ambulatory Orders: Occupational Therapy Eval and Treat Outpatient (Order) Timeframe: 2 Days Facility: [facility] - Location: Occupational Therapy Ordered By: Flash Mendoza Physical Therapy Eval and Treat Outpatient (Order) Timeframe: 2 Days Facility: [facility] - Location: Physical Therapy Ordered By: Flash Mendoza Referrals: Daisy Esposito MD [Physician] - 1 week ([facility] will call Wednesday with an appointment for you to be seen for CVA.) Jignesh Avila FNP-C [Primary Care Provider] - 4-7 days ([facility] will call Wednesday to set up an appointment for you to be seen withiin one week. ) Discharge Diet: Cardiac Discharge Activity: Increase activity as tolerated and As per PT/OT instructions Patient Instructions: Warfarin (By mouth), Aspirin (By mouth), Atorvastatin (By mouth), Apixaban (By mouth), Ischemic Stroke (GEN), Stroke Stoplight Activity Restrictions/Additional Instructions: Please monitor your blood pressure 3 times daily, record values to bring to your appointment. If you are able to buy eliquis, please switch to this medication as we discussed and discontinue warfarin if you do. Do not take both Eliquis and Warfarin. Otherwise, please take 15mg (5x 3mg tablets) of warfarin for 3 days, then resume 12mg daily. Please follow-up closely with your primary care doctor to maintain warfarin in therapeutic range. Please note for now your dose is increased to 12 mg daily after additional 1 extra dose here in the hospital. Please call your primary care physician's office early next week to follow-up additional INR level. Please note that A1c test to check for diabetes has been ordered and results are pending, please follow-up with your primary care doctor on the final result. Please follow-up with neurology in office. Please discuss whether it may be beneficial to pursue additional assessment with ABELARDO (transesophageal echocardiogram), or other additional testing. Please note that you are started on aspirin in addition to warfarin. Please note together they may increase additionally risk of bleeding. Aspirin should help decrease the risk of stroke in the future. Please take extra caution to prevent any injury that may cause bleeding. Discharge Attestations Time Spent in Discharge Care*: greater than 30 min Quality Metrics Clinical Quality Measures During this hospital stay, did patient experience: Stroke Contraindication to Antithrombotic: Antithrombotic prescribed Contraindication to Anticoagulation: Anticoagulation prescribed Contraindication to Statin: Statin prescribed Coding Level of Care Code Acute Hot Metal Crane Operator for Elliot Reed Diagnoses Cerebrovascular accident I63.9 Confusion R41.0
== END 2020-05-12 11:24 | disposition home or self-care (01) ==
LOC: ER 23:05 → MEDSURG 05-11 07:15
PROVIDERS: Admitting Provider Internal Medicine; Emergency Provider Emergency Medicine; PCP Nurse Practitioner; Visit Provider Internal Medicine
DX: I63.9 Cerebral infarction, unspecified (principal); R41.0 Disorientation, unspecified; I95.9 Hypotension, unspecified; Z86.718 Personal history of other venous thrombosis and embolism; Z79.01 Long term (current) use of anticoagulants; Z86.711 Personal history of pulmonary embolism; E87.6 Hypokalemia
CPT/HCPCS: 12345; 36415; 36600; 70450; 70496; 70498; 70551; 71045; 80053; 80307; 81003; 82140; 82803; 83036; 83735; 84443; 84484; 85025; 85378; 85610; 93005; 93306; 96361; 96372; 96374; 97116; 97161; 99283; 99285; G0378; J1650; J2060; J7030; Q9967

== ENCOUNTER 2020-05-13 14:05 | Outpatient (CLI) | payer SELFPAY | END 2020-05-13 14:06 | disposition home or self-care (01) | LOC: LAB 12-11 12:27 | PROVIDERS: PCP Nurse Practitioner; Visit Provider Nurse Practitioner | DX: Z86.718 Personal history of other venous thrombosis and embolism (principal); M10.9 Gout, unspecified; M79.674 Pain in right toe(s); M20.11 Hallux valgus (acquired), right foot | CPT/HCPCS: 73630; 84550; 85610 ==

== ENCOUNTER 2020-05-16 08:48 | Outpatient (CLI) | payer SELFPAY | END 2020-05-16 08:49 | disposition home or self-care (01) | LOC: WOUND 08:48 | PROVIDERS: PCP Nurse Practitioner; Visit Provider Nurse Practitioner Family | DX: I87.2 Venous insufficiency (chronic) (peripheral) (principal); L97.822 Non-pressure chronic ulcer of other part of left lower leg with fat layer exposed | CPT/HCPCS: 11042 ==

== ENCOUNTER → 2020-05-21 09:30 | Outpatient (BNVA) | payer SELFPAY | PROVIDERS: PCP Nurse Practitioner; Visit Provider Nurse Practitioner | DX: Z79.01 Long term (current) use of anticoagulants (principal); Z86.718 Personal history of other venous thrombosis and embolism | CPT/HCPCS: 85610 ==

== ENCOUNTER 2020-05-23 08:56 | Outpatient (CLI) | payer SELFPAY | END 2020-05-23 08:57 | disposition home or self-care (01) | LOC: WOUND 08:57 | PROVIDERS: Visit Provider Nurse Practitioner Family | DX: I87.2 Venous insufficiency (chronic) (peripheral) (principal); L97.822 Non-pressure chronic ulcer of other part of left lower leg with fat layer exposed | CPT/HCPCS: 11042 ==

== ENCOUNTER 2020-05-30 09:31 | Outpatient (CLI) | payer SELFPAY | END 2020-05-30 09:32 | disposition home or self-care (01) | LOC: WOUND 09:31 | PROVIDERS: Visit Provider Nurse Practitioner Family | DX: I87.2 Venous insufficiency (chronic) (peripheral) (principal); L97.822 Non-pressure chronic ulcer of other part of left lower leg with fat layer exposed | CPT/HCPCS: 11042 ==

== ENCOUNTER 2020-06-06 09:02 | Outpatient (CLI) | payer SELFPAY | END 2020-06-06 09:03 | disposition home or self-care (01) | LOC: WOUND 09:03 | PROVIDERS: Visit Provider Nurse Practitioner Family | DX: I87.2 Venous insufficiency (chronic) (peripheral) (principal); L97.822 Non-pressure chronic ulcer of other part of left lower leg with fat layer exposed | CPT/HCPCS: 11042 ==

== ENCOUNTER 2020-06-13 09:43 | Outpatient (CLI) | payer SELFPAY | END 2020-06-13 09:44 | disposition home or self-care (01) | LOC: WOUND 09:43 | PROVIDERS: PCP Nurse Practitioner; Visit Provider Nurse Practitioner Family | DX: I87.2 Venous insufficiency (chronic) (peripheral) (principal); L97.822 Non-pressure chronic ulcer of other part of left lower leg with fat layer exposed | CPT/HCPCS: 11042 ==

== ENCOUNTER → 2020-06-19 10:41 | Outpatient (BNVA) | payer SELFPAY | PROVIDERS: PCP Nurse Practitioner; Visit Provider Internal Medicine Cardiovascular Disease | DX: I63.9 Cerebral infarction, unspecified (principal) | CPT/HCPCS: 87635 ==

== ENCOUNTER 2020-06-20 08:14 | Outpatient (CLI) | payer SELFPAY | END 2020-06-20 08:15 | disposition home or self-care (01) | LOC: WOUND 08:15 | PROVIDERS: PCP Nurse Practitioner; Visit Provider Nurse Practitioner Family | DX: I87.2 Venous insufficiency (chronic) (peripheral) (principal); R06.00 Dyspnea, unspecified; L97.822 Non-pressure chronic ulcer of other part of left lower leg with fat layer exposed | CPT/HCPCS: 11042; 80048; 83735; 83880 ==

== ENCOUNTER 2020-06-21 05:56 | Day surgery (SDC) | payer SELFPAY ==
[2020-06-21 06:25] VITALS: BP 132/73; PULSE 65; RESP 16; TEMP 36.7; O2SAT 97
[2020-06-21 06:41] VITALS: BMI 36.6
--- NOTE | 2020-06-21 06:48 | USCV_ITS ---
Zeb Bowles Age: 59 Gender: M : 1960 Exam Date: 06/21/2020 06:59 Ordering Phys: Sherice Downs MD ([email or web address]) Technologist: Arthur Hoffman Exam Location: [facility] [place] Indication: CVA BP: 132 / 73 HR: 78 Rhythm: Sinus Technical Quality: Excellent MEASUREMENTS (Male / Female) Normal Values DOPPLER LVOT Peak Velocity 86.0 cm/s Medications Patient given IV sedation by anesthesia service, for details please refer to the anesthesia report. Complications Proc. Components FINDINGS Left Ventricle Normal left ventricular size and systolic function with no regional wall motion abnormalities. Left ventricular ejection fraction is estimated at 65 %. Right Ventricle Normal right ventricular size and systolic function. Right Atrium Normal right atrial size. Left Atrium Normal left atrial size. LA Appendage Normal left atrial appendage. Normal flow velocities in the left atrial appendage. No thrombus visualized in the left atrial appendage. IA Septum Normal interatrial septum. No patent foramen ovale. No evidence for an atrial septal defect. Mitral Valve Structurally normal mitral valve. No mitral valve stenosis. Mild mitral valve regurgitation. Aortic Valve Structurally normal trileaflet aortic valve. No aortic valve stenosis. Trace aortic valve regurgitation. Tricuspid Valve Structurally normal tricuspid valve. Trace tricuspid valve regurgitation. Pulmonic Valve Structurally normal pulmonic valve. Trace pulmonary valve regurgitation. Pericardium No pericardial effusion. Aorta Normal size aortic root and proximal ascending aorta. No evidence of aortic aneurysm, dissection or dilation. CONCLUSIONS 1. Normal left ventricular size and systolic function with no regional wall motion abnormalities. Left ventricular ejection fraction is estimated at 65 %. 2. No significant valvular abnormality. 3. No left atrial or left atrial appendage thrombus. 4. No evidence of ASD or PFO. Sherice Downs MD (Electronically Signed) Final Date: 29 June 2020 19:34 S
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
[2020-06-21 07:45] VITALS: BP 121/87; PULSE 64; RESP 18; O2SAT 99
--- NOTE | 2020-06-21 07:54 | W.PM.OPSUD ---
Surgery/Procedure H&P Update DATE OF PROCEDURE: June 21, 2020 DATE H&P PERFORMED: 06/12/20 PREOP DIAGNOSIS: Hx CVA PLANNED PROCEDURE: Operation Date: 06/21/20 07:00 Proposed Procedures p ABELARDO (Transesophageal Echocardiogram) 17716 I63.9(Not Applicable) - Sherice Downs MD Mr. Bowles presented today for outpatient transesophageal echocardiogram for recurrent CVA. Patient was recently seen in office by me on 06/12/20. His outpatient history and physical was reviewed and recent labs were reviewed. Patient was examined and made no changes to physical exam. Vitals stable. Plan is to proceed with transesophageal echocardiogram under sedation by anesthesia.
--- NOTE | 2020-06-21 07:59 | PM.ACPR ---
Procedure/Consent Time out: Time Out Performed: Yes Consent: Consent for Procedure: Consent obtained from patient, Risks & Benefits reviewed and Agrees to proceed with procedure Procedure Narrative: ABELARDO Procedure note Indication: Acute stroke Sedation: Propofol by anesthesia The patient was brought down to the roofing laborer (CPRU). Procedure was explained to the patient in detail and informed consent was obtained. Timeout was called. After achieving adequate sedation, the probe was inserted on first attempt. No blood on the probe post procedure. Prelim report: Normal left ventricle size and systolic function. No left atrial or left atrial appendage mass or thrombus visualized. No ASD or PFO identified. Full report to follow. Patient tolerated the procedure well and initial recovery in roofing laborer and subsequently was transferred to the floor for further management. Acute Procedures Epistaxis Control: Time out performed: Yes
[2020-06-21 08:00] VITALS: BP 127/62; PULSE 63; RESP 18; O2SAT 99
[2020-06-21 08:13] VITALS: BP 127/62; PULSE 68; RESP 18; TEMP 36.7; O2SAT 98
--- NOTE | 2020-06-21 14:18 | ANE.PACU2 ---
Inpatient post-anesthesia follow up: Airway intact: Yes Vital signs: Temperature 98.0 F Pulse Rate 68 Respiratory Rate 18 Blood Pressure 127/62 Pulse Oximetry 98 Oxygen Delivery Me thod Room Air Oxygen Flow Rate Fraction of Inspir ed Oxygen Hydration adequate: Yes Nausea and vomiting: No Pain level: 1 Mental status: Baseline
== END 2020-06-21 08:40 | disposition home or self-care (01) ==
PROVIDERS: PCP Nurse Practitioner; Visit Provider Internal Medicine Cardiovascular Disease
DX: I63.9 Cerebral infarction, unspecified (principal); Z86.711 Personal history of pulmonary embolism; Z86.718 Personal history of other venous thrombosis and embolism; I10 Essential (primary) hypertension; Z86.73 Personal history of transient ischemic attack (TIA), and cerebral infarction without residual deficits; Z87.891 Personal history of nicotine dependence
CPT/HCPCS: 93312; 93320; 93325; J2370; J2704; J7030

== ENCOUNTER 2020-06-27 08:17 | Outpatient (CLI) | payer SELFPAY | END 2020-06-27 08:18 | disposition home or self-care (01) | LOC: WOUND 08:17 | PROVIDERS: PCP Nurse Practitioner; Visit Provider Nurse Practitioner Family | DX: Z09 Encounter for follow-up examination after completed treatment for conditions other than malignant neoplasm (principal) | CPT/HCPCS: 29581; A6530 ==

== ENCOUNTER 2020-07-04 08:12 | Outpatient (CLI) | payer SELFPAY | END 2020-07-04 08:13 | disposition home or self-care (01) | LOC: WOUND 08:12 | PROVIDERS: PCP Nurse Practitioner; Visit Provider Nurse Practitioner Family | DX: Z09 Encounter for follow-up examination after completed treatment for conditions other than malignant neoplasm (principal) | CPT/HCPCS: 99212 ==

== ENCOUNTER → 2020-08-06 09:37 | Outpatient (BNVA) | payer SELFPAY | PROVIDERS: PCP Nurse Practitioner | DX: Z79.01 Long term (current) use of anticoagulants (principal); Z86.718 Personal history of other venous thrombosis and embolism | CPT/HCPCS: 85610 ==

== ENCOUNTER → 2020-08-13 13:35 | Outpatient (BNVA) | payer SELFPAY | PROVIDERS: PCP Nurse Practitioner; Visit Provider Nurse Practitioner | DX: M25.531 Pain in right wrist (principal); I10 Essential (primary) hypertension; R45.4 Irritability and anger; M10.9 Gout, unspecified; I63.9 Cerebral infarction, unspecified | CPT/HCPCS: 73110 ==

== ENCOUNTER → 2020-10-15 16:15 | Outpatient (BNVA) | payer SELFPAY | PROVIDERS: PCP Nurse Practitioner; Visit Provider Nurse Practitioner | DX: Z79.01 Long term (current) use of anticoagulants (principal); Z86.718 Personal history of other venous thrombosis and embolism | CPT/HCPCS: 85610 ==

== ENCOUNTER → 2020-12-02 10:16 | Outpatient (BNVA) | payer SELFPAY | PROVIDERS: PCP Nurse Practitioner; Visit Provider Internal Medicine Cardiovascular Disease | DX: R06.00 Dyspnea, unspecified (principal); Z86.718 Personal history of other venous thrombosis and embolism; Z79.01 Long term (current) use of anticoagulants; R00.2 Palpitations; I10 Essential (primary) hypertension; I63.9 Cerebral infarction, unspecified; G47.9 Sleep disorder, unspecified | CPT/HCPCS: 80048; 83735; 83880; 85610 ==

== ENCOUNTER 2021-01-10 08:22 | Outpatient (CLI) | payer MEDICARE, SELFPAY ==
[2021-01-10 08:44] VITALS: BMI 35.6
--- NOTE | 2021-01-10 08:45 | ECG_ITS ---
[facility] Test Date: 2021-01-10 Pat Name: Zeb Bowles Department: Room: Gender: Male Bottom Turner: : 1960 Requested By: Sherice Downs Order Number: [id number] Chalino MD: Sherice Downs M.D. Interpretive Statements NAME OF STUDY: LEXISCAN SESTAMIBI STRESS TEST INDICATION: Dyspnea on exertion PROCEDURE: At the baseline, the blood pressure was 125/77 mm Hg with a heart rate of 58 bpm. The electrocardiogram showed sinus bradycardia, normal axis with normal ST and T's. ??? The Lexiscan was infused over a period of 20 seconds. A total of 0.4 milligrams of Lexiscan was infused. The stress phase was continued for a total of 5 minutes. Heart rate at the end of the stress phase was 68 bpm with a blood pressure of 121/68 mm Hg. The EKG at the peak infusion revealed sinus rhythm with no significant ST-T wave changes. ??? Sestamibi was injected 20 seconds after the Lexiscan infusion. ??? Blood pressure at the end of the recovery phase was 115/67 mm Hg with a heart rate of 71 beats per minute. ??? CONCLUSION: 1. No significant EKG changes with the LexiScan infusion. 2. No LexiScan induced chest pain or cardiac arrhythmia. 3. Normal blood pressure and heart rate response. 4. Sestamibi/sestamibi perfusion scan pending; see separate report. Electronically Signed On 01-13-2021 9:29:34 CDT by Sherice Downs M.D. [email or web address]
--- NOTE | 2021-01-10 08:45 | NMCV_ITS ---
NM patricia perf SPECT r/s* [id number] Zeb Bowles Age: 60 Gender: M : 1960 Exam Date: 01/10/2021 10:01 Ordering Phys: Sherice Downs MD ([email or web address]) Technologist: DANA Pollack Exam Location: [facility] Indications: Dyspnea on exertion, H/O CVA, Palpitations STRESS TEST Please see separate stress test report in [facility] for full findings IMAGE PROTOCOL Rest/Stress 1 Lexiscan Day Radiopharmaceutical Dose (mCi) Administration Site Administered by Rest: Tc-99m 10.9 IV DANA Pretty Sestamibi Stress:Tc-99m 33.0 IV DANA Pretty Sestamibi Rest: 10-Jan-2021 60 Discovery 630 Stress: 10-Jan-2021 30 Discovery 630 0.4mg Lexiscan. Supine position only as patient was unable to lay prone. SPECT RESULTS Technical Quality: Excellent Raw Data Analysis: Normal Image Corrections: No attenuation or motion correction applied Summed Stress Score: 0 Summed Rest Score: 0 Summed Difference Score: 0 PERFUSION FINDINGS Small size perfusion abnormality of mild severity of mid to apical inferior and apical septal wall on rest images with somewhat improved tracer uptake on supine stress images. FUNCTIONAL RESULTS (calculated via Gated SPECT) Stress Image LV EF (%): 59 Stress EDV (mL):176 TID: 1.05 Stress ESV (mL):73 FUNCTIONAL FINDINGS: The left ventricle is normal in size. Transient Ischemia Dilatation of 1.1. There is normal left ventricular systolic function. The left ventricular ejection fraction is normal with a value of 59%. There is normal left ventricular wall thickening with no regional wall motion abnormality. IMPRESSIONS 1. Small sized perfusion abnormality of mild severity of mid to apical inferior and apical septal campo. 2. This likely presents attenuation artifact. Small area of old myocardial infarction in right coronary artery territory cannot be completely ruled out. 3. Overall left ventricular systolic function is normal without regional wall motion abnormalities. 4. No significant EKG changes with Lexiscan infusion. No coronary ischemia based on the study. 5. No prior similar studies to compare. Sherice Downs MD (Electronically Signed) Final Date: 15 January 2021 08:53 Amended: 15 January 2021 08:56 C
[2021-01-10] MEDS: regadenoson 0.4 Mg/5 ml Syringe IVP (10:38)
[2021-01-10 10:51] VITALS: BP 115/67; PULSE 67
== END 2021-01-10 08:23 | disposition home or self-care (01) ==
PROVIDERS: PCP Nurse Practitioner; Visit Provider Internal Medicine Cardiovascular Disease
DX: R06.00 Dyspnea, unspecified (principal)
CPT/HCPCS: 78452; 93017; A9500; J2785

== ENCOUNTER → 2021-01-21 16:15 | Outpatient (BNVA) | payer MEDICARE, SELFPAY | PROVIDERS: PCP Nurse Practitioner; Visit Provider Nurse Practitioner | DX: I69.321 Dysphasia following cerebral infarction (principal); M79.10 Myalgia, unspecified site; Z86.718 Personal history of other venous thrombosis and embolism; Z79.01 Long term (current) use of anticoagulants | CPT/HCPCS: 85610 ==

== ENCOUNTER 2021-02-27 11:15 | Outpatient (CLI) | payer MEDICARE, SELFPAY ==
--- NOTE | 2021-02-27 11:00 | FL_ITS ---
WS: [id number] Modified barium swallow, 02/27/2021 Clinical Data: Dysphasia, history of 3 strokes. Comparison: None. Fluoroscopy time: 1.2 minutes. Findings: The patient swallowed various consistencies of barium and a tablet. The oral phase appeared normal wi th no difficulty in initiation. In the hypopharynx there is no aspiration or penetration. The propuls ion of the barium through the hypopharynx appeared to be normal. The barium tablet showed no hesitati on. FL/FL barium swallow modifd [id number] Impression: Normal modified barium swallow.
== END 2021-02-27 11:16 | disposition home or self-care (01) ==
PROVIDERS: PCP Nurse Practitioner; Visit Provider Otolaryngology
DX: I69.391 Dysphagia following cerebral infarction (principal); K21.9 Gastro-esophageal reflux disease without esophagitis
CPT/HCPCS: 74230; 92611

== ENCOUNTER → 2021-03-12 12:09 | Outpatient (BNVA) | payer MEDICARE, SELFPAY | PROVIDERS: PCP Nurse Practitioner; Visit Provider Nurse Practitioner | DX: Z79.01 Long term (current) use of anticoagulants (principal) | CPT/HCPCS: 85610 ==

== ENCOUNTER → 2021-03-18 09:33 | Outpatient (BNVA) | payer MEDICARE, SELFPAY | PROVIDERS: PCP Nurse Practitioner; Visit Provider Nurse Practitioner | DX: Z12.5 Encounter for screening for malignant neoplasm of prostate (principal); I10 Essential (primary) hypertension | CPT/HCPCS: 80053; 80061; 81000; 85025; G0103 ==

== ENCOUNTER 2021-03-24 20:00 | Outpatient (CLI) | payer MEDICARE, SELFPAY | END 2021-03-24 20:01 | disposition home or self-care (01) | LOC: SLEEP 03-25 07:19 | PROVIDERS: PCP Nurse Practitioner; Visit Provider Internal Medicine Cardiovascular Disease | DX: G47.33 Obstructive sleep apnea (adult) (pediatric) (principal) | CPT/HCPCS: 95811 ==

== ENCOUNTER 2021-05-20 07:33 | Outpatient (CLI) | payer MEDICARE, SELFPAY ==
--- NOTE | 2021-05-20 07:15 | USCV_ITS ---
Zeb Bowles Age: 60 Gender: M : 1960 Exam Date: 05/20/2021 07:46 Ordering Phys: Jignesh Avila Technologist: REHANA Exam Location: [facility] [place] Indication: SCREENING FOR OTHER CARDIOVASCULAR DISORDER HISTORY: Diameter (cm) AP x Transverse x Length Velocity (cm/s) Waveform Prox Aorta: 2.06 x 2.67 x 85.90 Mid Aorta: 2.21 x 2.26 x 55.50 Distal Aorta: 2.32 x 2.22 x 48.30 Right Iliac Prox: 1.00 x 0.95 x 100.95 Left Iliac Prox: 1.05 x 1.12 x 78.40 Stent Prox Landing x x Aneurysmal Sac Max x x Lt Lat Sac Dim Rt Lat Sac Dim Stent Dist Landing x x Right Iliac Stent x x Left Iliac Stent x x Right Renal Art Left Renal Art FINDINGS: Comparison: none available. Ectatic abdominal aorta with evidence of atherosclerotic plaque noted. No significant stenosis noted in the abdominal aorta. No evidence of abdominal aortic aneurysm. There is no evidence of a right common iliac artery aneurysm. There is no evidence of a left common iliac artery aneurysm. CONCLUSIONS No evidence of abdominal aortic or bilateral iliac aneurysm. Dr. Juanita Curry DO (Electronically Signed) Final Date: 20 May 2021 09:15 S
== END 2021-05-20 07:34 | disposition home or self-care (01) ==
PROVIDERS: PCP Nurse Practitioner; Visit Provider Nurse Practitioner
DX: Z13.6 Encounter for screening for cardiovascular disorders (principal)
CPT/HCPCS: 76706

== ENCOUNTER → 2021-07-15 13:23 | Outpatient (BNVA) | payer MEDICARE, SELFPAY | PROVIDERS: PCP Nurse Practitioner; Visit Provider Nurse Practitioner Family | DX: R00.2 Palpitations (principal); R06.00 Dyspnea, unspecified; G47.9 Sleep disorder, unspecified; Z86.718 Personal history of other venous thrombosis and embolism; R00.0 Tachycardia, unspecified; Z86.73 Personal history of transient ischemic attack (TIA), and cerebral infarction without residual deficits; Z87.891 Personal history of nicotine dependence | CPT/HCPCS: 99214 ==

== ENCOUNTER → 2021-09-19 09:38 | Outpatient (BNVA) | payer MEDICARE, SELFPAY | PROVIDERS: PCP Nurse Practitioner; Visit Provider Nurse Practitioner | DX: M10.9 Gout, unspecified (principal); M79.10 Myalgia, unspecified site; R45.4 Irritability and anger; G25.81 Restless legs syndrome; I10 Essential (primary) hypertension; Z86.718 Personal history of other venous thrombosis and embolism; G47.9 Sleep disorder, unspecified; R06.00 Dyspnea, unspecified | CPT/HCPCS: 80053; 80061; 81000; 85025 ==

== ENCOUNTER → 2021-12-18 10:06 | Outpatient (BNVA) | payer MEDICARE, SELFPAY | PROVIDERS: PCP Nurse Practitioner; Visit Provider Nurse Practitioner | DX: I10 Essential (primary) hypertension (principal); R05.9 Cough, unspecified; Z20.822 Contact with and (suspected) exposure to COVID-19 | CPT/HCPCS: 80053; 85025; 87400; 87426 ==

== ENCOUNTER → 2022-02-02 13:24 | Outpatient (BNVA) | payer MEDICARE, SELFPAY | PROVIDERS: PCP Nurse Practitioner; Referring Provider Nurse Practitioner; Visit Provider Specialist | DX: G56.02 Carpal tunnel syndrome, left upper limb (principal); G56.11 Other lesions of median nerve, right upper limb; G56.23 Lesion of ulnar nerve, bilateral upper limbs | CPT/HCPCS: 95910; 95913 ==

== ENCOUNTER → 2022-02-19 07:57 | Outpatient (BNVA) | payer MEDICARE, SELFPAY | PROVIDERS: PCP Nurse Practitioner; Visit Provider Student in an Organized Health Care Education/Training Program | DX: G56.03 Carpal tunnel syndrome, bilateral upper limbs (principal); G56.23 Lesion of ulnar nerve, bilateral upper limbs | CPT/HCPCS: 99204 ==

== ENCOUNTER 2022-02-25 09:20 | Day surgery (SDC) | payer MEDICARE, SELFPAY ==
[2022-02-24 10:17] VITALS: BMI 36.6
[2022-02-25] VITALS (7 sets, daily range): BP systolic 92–131; BP diastolic 50–77; PULSE 61–67; RESP 15–18; TEMP 36.1–36.2; O2SAT 96–99
[2022-02-25] MEDS: acetaminophen 1,000 MG/100 ML PIGGYBACK 400 MG IV (09:57)
[2022-02-25] MEDS: sodium chloride 0.9% 1,000 ML 30 ML IV (09:58)
[2022-02-25] MEDS: gabapentin 300 mg Capsule PO (09:58)
[2022-02-25] MEDS: ketorolac 30 mg/mL INJ IVP (09:58)
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
--- NOTE | 2022-02-25 11:15 | W.PM.OPSUD ---
Surgery/Procedure H&P Update DATE OF PROCEDURE: February 25, 2022 DATE H&P PERFORMED: 02/19/22 CHANGES TO PREVIOUS DOCUMENTATION: None. Once again reviewed patient's EMG which did show some decreased sensation in the ulnar nerve distribution at the elbow however he has no perceived decrease sensation and a negative Tinel's at this point time he does have a findings consistent with severe carpal tunnel syndrome bilaterally right worse than left. And he has provocative on examination we will proceed with right carpal tunnel release today. PREOP DIAGNOSIS: Right carpal tunnel syndrome PRIMARY INDICATION FOR PROCEDURE: Right carpal tunnel syndrome PLANNED PROCEDURE: Operation Date: 02/25/22 10:50 Proposed Procedures p right carpal tunnel release: 82306 G56.01(Right) - Art Wilkins DO
[2022-02-25] MEDS: clindamycin 600 MG/50 ML PREMIX 100 MG IV (14:31)
[2022-02-25] MEDS: lidocaine 1% INJ 50 mL INJECTION (14:50)
--- NOTE | 2022-02-25 15:27 | PM.OP2 ---
Brief Operative Note Date of procedure: 02/25/22 Pre-op diagnosis: Right carpal tunnel syndrome Post-op diagnosis: same Procedure Done: Right carpal tunnel release Surgeon: Art Wilkins Estimated blood loss (mL): 2 Complications: None Post-op Plan: Patient taken to PACU in stable condition dressing on in place clean dry and intact. Patient will be given appropriate discharge instructions as well as pain medication postoperatively. We will follow-up with me in office in 2 weeks. Patient and understand agree with current plan. All questions answered. Condition: stable Disposition: same day Coding Level of Care Code Acute Air Bag Stripper for Elliot Reed
--- NOTE | 2022-02-25 15:29 | PM.PACU ---
PACU note Narrative: Patient's dressings on in place clean dry and intact. Bulky soft dressing in place. Patient is able to wiggle fingers, brisk capillary refill less than 2 seconds noted. Sensation decreased at baseline secondary to severe carpal tunnel syndrome as well as local block. Exam: awake (See narrative for detailed exam) Disposition: discharged
--- NOTE | 2022-02-25 15:30 | P.OP_ITS ---
Operative Report Date of procedure: February 25, 2022 Pre-op diagnosis: Preop Diagnosis Right carpal tunnel syndrome Post-op diagnosis: Same Procedure done: Right carpal tunnel release Surgeon: Art Wilkins DO Estimated blood loss: 2mL 16 minutes IV fluids: See anesthesia record Complications: None Findings: See operative report narrative Condition: stable Disposition: same day Brief History: Patient is a 61-year-old male seen evaluated outpatient setting for bilateral hand carpal tunnel syndrome. His findings show severe bilateral carpal tunnel syndrome. His right is worse than his left. He has severe decreased sensation and provocative to Phalen's, Tinel's as well as median nerve compression at the wrist. He does have some mild thenar atrophy noted as well as weakness. Denies any ulnar nerve provocative symptoms. We had a detailed discussion with him in the office about nonoperative and operative intervention. Through shared decision making he would like to proceed with right carpal tunnel release surgery given he is already having some signs of weakness. Patient understands risk benefits complication alternatives of surgical and nonsurgical treatment options and agrees to proceed with surgical intervention. Consent was obtained in the office. Understands agrees with current plan. All questions answered. Procedure: Patient seen evaluated the preoperative holding area. Consent was reviewed with patient correct extremity was then marked. Patient was seen by by anesthesia department once cleared for surgery was taken back to the operative suite. He was placed on the OR table all bony prominences well-padded right arm was placed on hand table. He underwent anesthesia per the anesthesia department. Tourniquet was applied to the right upper extremity. Right upper extremity was then prepped and draped in sterile orthopedic fashion. Patient received appropriate preoperative antibiotics. Final timeout performed. Prior to inflating tourniquet local anesthetic was then placed around the incision. Esmarch tourniquet was used exsanguinate the right upper extremity. Tourniquet was insufflated to 250 mmHg. Standard open mini carpal tunnel incision was made by distal extent starting at Mora's cardinal line in line with the fourth ray extending proximally just distal to the wrist crease. Sharp scalpel excision through skin and subcutaneous tissue I then identified the palmar fascia. I utilized Aleksandra argueta issection scissors to split and split the fascia longitudinally. Self-retaining retractors were then placed. I then utilized my assistant import manager to hold Kasdan retractors both distally and proximally that I used a 15 blade to feathered through patient's thick dense transverse carpal ligament until I encountered the carpal tunnel. At this point in time I then switched to dissection scissors and under direct visualization decompressed the transverse carpal ligament distally until I encountered the palmar fat and then immediately stopped. I spread to make sure the nerve was completely decompressed distally. Next I spread on top of the transverse carpal ligament and placed a Magdy retractor to elevate for direct visualization on top of the transverse carpal ligament and I subsequently visualized my Littler dissection scissors through loupe magnification completely decompress the rest of the transverse carpal ligament proximally and decompressed the median antebrachial fascia care was made by Littler dissection scissors were curved our only care not to injure the palmar cutaneous branch. At this point in time I utilized my [place] to feel complete decompression both distally and proximally. Direct visualization of the nerve was noted with severe inflammation as well as a severely compressed hourglass type shape. No masses were noted. Care was made to protect the recurrent branch throughout the case. Tourniquet was then deflated. Wound bed was thoroughly irrigated hemostasis was satisfactory with bipolar electrocautery. I then closed the skin and interrupted nylon fashion. Xeroform 4 x 4's ABDs Kerlix and a soft roll and Irwin wrap was then applied as a bulky soft dressing. Patient was then awakened from anesthesia and taken to PACU in stable condition. Disposition: Patient taken to PACU in stable condition will receive appropriate discharge instructions as well as pain medication postoperatively. Given appropriate instructions for his dressing change. We will see me in office in 2 weeks. If he has any questions or concerns and contact the office.
[2022-02-25] MEDS: HYDROcodone-acetaminophen 5-325 mg Tablet 1 TAB PO (16:21)
--- NOTE | 2022-02-25 16:57 | ANE.PACU2 ---
Inpatient post-anesthesia follow up: Airway intact: Yes Vital signs: Temperature 97.0 F Pulse Rate 63 Respiratory Rate 17 Blood Pressure 107/67 Pulse Oximetry 98 Oxygen Delivery Me thod Room Air Oxygen Flow Rate 10 Fraction of Inspir ed Oxygen Hydration adequate: Yes Nausea and vomiting: No Pain level: 2 Mental status: Baseline
== END 2022-02-25 16:27 | disposition home or self-care (01) ==
PROVIDERS: PCP Nurse Practitioner; Visit Provider Student in an Organized Health Care Education/Training Program
PROC: (CPT 64721; principal; 2022-02-25 10:40)
DX: G56.01 Carpal tunnel syndrome, right upper limb (principal); Z86.73 Personal history of transient ischemic attack (TIA), and cerebral infarction without residual deficits; E78.5 Hyperlipidemia, unspecified; I10 Essential (primary) hypertension; E66.01 Morbid (severe) obesity due to excess calories; Z68.36 Body mass index [BMI] 36.0-36.9, adult; Z79.82 Long term (current) use of aspirin; Z87.891 Personal history of nicotine dependence
CPT/HCPCS: 64721; J0131; J1885; J2704; J2795; J3010; J3490; J7030

== ENCOUNTER → 2022-03-16 08:54 | Outpatient (BNVA) | payer MEDICARE, SELFPAY | PROVIDERS: PCP Nurse Practitioner; Visit Provider Student in an Organized Health Care Education/Training Program | DX: G56.03 Carpal tunnel syndrome, bilateral upper limbs (principal) | CPT/HCPCS: 99214 ==

== ENCOUNTER 2022-04-24 06:57 | Day surgery (SDC) | payer MEDICARE, SELFPAY ==
[2022-04-23 14:15] VITALS: BMI 34.9
[2022-04-24 07:44] VITALS: BP 110/73; PULSE 62; RESP 18; TEMP 36.2; O2SAT 97
[2022-04-24] MEDS: ketorolac 30 mg/mL INJ IVP (07:47)
[2022-04-24] MEDS: acetaminophen 1,000 MG/100 ML PIGGYBACK 400 MG IV (07:47)
[2022-04-24] MEDS: sodium chloride 0.9% 1,000 ML 30 ML IV (07:47)
[2022-04-24 08:38] LABS: Anion Gap 12.9 (5-19); Blood Urea Nitrogen 12 mg/dL (8-23); Calcium 8.9 mg/dL (8.5-10.5); Carbon Dioxide 22 mmol/L (22-29); Chloride 108 mmol/L (98-107); Glomerular Filtration Rate 85.5 mL/min (90-130); Glucose 97 mg/dL (65-115); Osmolality Calculated 288 mOsm/kg (285-295); Potassium 3.9 mmol/L (3.5-5.1); Sodium 139 mmol/L (136-145)
[2022-04-24] MEDS: clindamycin 600 MG/50 ML PREMIX 100 MG IV (09:50)
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
[2022-04-24] MEDS: lidocaine 1% INJ 20 mL 10 ML INJECTION (10:12)
--- NOTE | 2022-04-24 10:39 | P.OP_ITS ---
Operative Report Date of procedure: April 24, 2022 Pre-op diagnosis: Preop Diagnosis Left carpal tunnel syndrome Post-op diagnosis: Left carpal tunnel syndrome Procedure done: Left carpal tunnel release Surgeon: Art Wilkins DO Estimated blood loss: 2mL 21 minutes IV fluids: See anesthesia record Complications: None Findings: See operative report narrative Brief History: Patient is a 61-year-old gentleman with bilateral carpal tunnel syndrome X been worked up in the outpatient setting. Physical exam findings consistent with this he is already had his right carpal tunnel released. He is here today for his left carpal tunnel release surgery. He has had positive EMG and nerve conduction study findings consistent with bilateral carpal tunnel syndrome. He continues to have no ulnar nerve symptoms on physical examination he satisfied with his right carpal tunnel release surgery and at this point time through shared decision making we agreed to proceed with a left carpal tunnel release surgery. He understands risk benefits complications alternatives surgical and nonsurgical treatment options. Patient elects to proceed with surgical in tervention. All questions answered. Procedure: Patient seen and evaluated in the preoperative holding area. Consent was reviewed and signed with patient. Correct extremity was marked. Patient was seen evaluated by the anesthesia department once cleared for surgery was brought back to the operative suite. Placement was placed onto the OR table in supine position all bony prominences were well-padded patient properly secured to the bed. Left upper extremity was then placed onto an armboard. A nonsterile tourniquet was applied to the left upper arm. Patient then underwent anesthesia per the anesthesia department. Patient's left upper extremity was then prepped and draped in standard orthopedic fashion. Final timeout performed. Patient received appropriate preoperative antibiotics. Under sterile aseptic technique patient received local anesthesia over the preplanned carpal tunnel incision site. Esmarch tourniquet was used exsang uinate the left upper extremity and tourniquet was insufflated to 250 mmHg. A standard mini open carpal tunnel incision was made. Starting distally at Mora's cardinal line in line with the fourth ray extending proximally distal to the wrist crease. Sharp scalpel incision was made through skin and subcutaneous tissue. Self-retaining retractor was placed and the palmar fascia was identified. This was then split longitudinally and direct visualization of the transverse carpal ligament was then made. I then utilizing scalpel feathered through the transverse carpal ligament until I entered the floor of the transverse carpal tunnel ligament into the carpal tunnel. Next I switched to dissection scissors and completed my release of the transverse carpal ligament distally with care to protect the recurrent motor branch. I completely released into the palmar fat and no entrapment was noted distally. Care was made to protect the superficial palmar arch during my distal dissection. Next I then placed a Roxana underneath the transverse carpal tunnel ligament to protect the contents of the carpal tunnel and subsequently utilizing dissection scissors under loupe magnification completely released the transverse carpal ligament proximally into the median antebrachial fascia. Care was made to protect the palmar cutaneous branch by keeping my scissors curved ulnarly. Once completely released, I then placed my Roxana and had appropriate decompression of the carpal tunnel proximally as well as distally. I then inspected the contents of the carpal tunnel which showed an hourglass shape of the median nerve showing its compression. No masses were noted. Tendons appeared healthy. Wound was then thoroughly irrigated. Tourniquet deflated. Hemostasis satisfactory with bipolar electrocautery. I then closed the incision with interrupted nylon stitches. Xeroform 4 x 4's and a bulky soft dressing was applied to the left upper extremity. Patient was then awakened from anesthesia and taken to PACU in stable condition. Patient tolerated procedure without complications. Disposition: Patient taken to PACU in stable condition recovering well. Dressing clean dry and intact. Patient will receive appropriate discharge instructions as well as pain medication postoperatively. Patient to follow-up with me in the office in 2 weeks. They understand they may be weightbearing as tolerated to the left hand. Patient should keep incision clean dry and intact. Patient understands if any questions or concerns he may contact the office.
--- NOTE | 2022-04-24 10:39 | PM.OP2 ---
Brief Operative Note Date of procedure: 04/28/22 Pre-op diagnosis: Left carpal tunnel syndrome Post-op diagnosis: same Procedure Done: Left carpal tunnel release Surgeon: Art Wilkins Estimated blood loss (mL): 2 Complications: None Post-op Plan: Patient taken to PACU in stable condition recovering well receive appropriate discharge instructions as well as pain medication postoperatively. We will see him in the office in 2 weeks. Condition: stable Disposition: same day Coding Level of Care Code Acute Blocking Machine Operator Second for Elliot Reed
--- NOTE | 2022-04-24 10:39 | PM.PACU ---
PACU note Narrative: Patient taken PACU in stable condition recovering well. Pain controlled. Patient received local anesthesia and has residual decreased sensation secondary to this. Fingertips warm well-perfused dressing clean dry and intact. Exam: awake Disposition: discharged
[2022-04-24 10:54] VITALS: BP 89/55; PULSE 59; RESP 14; TEMP 36.1; O2SAT 95
[2022-04-24 11:00] VITALS: BP 88/64; PULSE 61; RESP 15; O2SAT 96
[2022-04-24 11:13] VITALS: BP 94/44; PULSE 59; RESP 16; TEMP 36.4; O2SAT 98
[2022-04-24 11:29] VITALS: BP 99/63; PULSE 60; RESP 18; O2SAT 95
--- NOTE | 2022-04-24 14:45 | ANE.PACU2 ---
Inpatient post-anesthesia follow up: Airway intact: Yes Vital signs: Temperature 97.6 F Pulse Rate 60 Respiratory Rate 18 Blood Pressure 99/63 Pulse Oximetry 95 Oxygen Delivery Me thod Room Air Oxygen Flow Rate Fraction of Inspir ed Oxygen Hydration adequate: Yes Nausea and vomiting: No Pain level: 2 Mental status: Baseline
== END 2022-04-24 11:38 | disposition home or self-care (01) ==
PROVIDERS: PCP Nurse Practitioner; Visit Provider Student in an Organized Health Care Education/Training Program
PROC: (CPT 64721; principal; 2022-04-24 09:00)
DX: G56.02 Carpal tunnel syndrome, left upper limb (principal); Z86.718 Personal history of other venous thrombosis and embolism; E78.5 Hyperlipidemia, unspecified; I10 Essential (primary) hypertension; K21.9 Gastro-esophageal reflux disease without esophagitis; E66.01 Morbid (severe) obesity due to excess calories; Z68.35 Body mass index [BMI] 35.0-35.9, adult; Z86.73 Personal history of transient ischemic attack (TIA), and cerebral infarction without residual deficits; Z79.82 Long term (current) use of aspirin; Z87.891 Personal history of nicotine dependence
CPT/HCPCS: 64721; 36415; 80048; J0131; J1885; J2370; J2704; J2795; J3010; J3490; J7030

== ENCOUNTER → 2022-05-01 11:41 | Outpatient (BNVA) | payer MEDICARE, SELFPAY | PROVIDERS: PCP Nurse Practitioner; Visit Provider Nurse Practitioner Family | DX: R06.00 Dyspnea, unspecified (principal); Z87.891 Personal history of nicotine dependence | CPT/HCPCS: 36415; 83880; 85025; 85378; 99214 ==

== ENCOUNTER → 2022-05-11 08:45 | Outpatient (BNVA) | payer MEDICARE, SELFPAY | PROVIDERS: PCP Nurse Practitioner; Visit Provider Student in an Organized Health Care Education/Training Program | DX: G56.03 Carpal tunnel syndrome, bilateral upper limbs (principal) | CPT/HCPCS: 99024 ==

== ENCOUNTER 2022-05-28 07:45 | Outpatient (CLI) | payer MEDICARE, SELFPAY ==
[2022-05-28 07:54] VITALS: BMI 36.6
--- NOTE | 2022-05-28 07:55 | ECG_ITS ---
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 Interpretive Statements NAME OF STUDY: LEXISCAN SESTAMIBI STRESS TEST INDICATION: Shortness of Breath, PROCEDURE: At the baseline, the EKG revealed sinus bradycardia with a normal ST Ts. The baseline heart was 57 bpm with a blood pressue of 101/54 mm of Hg Lexiscan was infused over a period of 20 seconds. A total of 0.4 milligrams of Lexiscan was infused. The stress phase was continued for a total of 5 minutes. Heart rate at the end of the stress phase was 64 bpm with a blood pressure 93/37 mm of Hg. The EKG at the peak infusion revealed no significant changes. Sestamibi was injected 20 seconds after the Lexiscan infusion. Heart rate at the end of the recovery phase was 61 bpm with a blood pressure of 115/69 mm of Hg. CONCLUSION: 1. No significant EKG changes with the LexiScan infusion 2. No LexiScan induced chest pain or cardiac arrhythmia 3. Normal blood pressure and heart rate response 4. Sestamibi/sestamibi perfusion scan pending; see separate report. Electronically Signed On 05-30-2022 14:06:34 PRESS SET UP by Eneida Kern M.D. [email or web address]
--- NOTE | 2022-05-28 07:56 | NMCV_ITS ---
NM patricia perf SPECT r/s* [id number] Zeb Bowles Age: 61 Gender: M : 1960 Exam Date: 05/28/2022 09:07 Ordering Phys: Nga Butts Technologist: DANA Pollack Exam Location: [facility] Indications: SHORTNESS OF BREATH STRESS TEST Please see separate stress test report in [facility] for full findings IMAGE PROTOCOL Rest/Stress 1 Lexiscan Day Radiopharmaceutical Dose (mCi) Administration Site Administered by Rest: Tc-99m 10.6 IV DANA Pretty Sestamibi Stress:Tc-99m 32.3 IV DANA Pretty Sestamibi Rest: 28-May-2022 60 Discovery 630 Stress: 28-May-2022 30 Discovery 630 0.4mg Lexiscan. Images obtained in supine and prone position. SPECT RESULTS Technical Quality: Excellent Raw Data Analysis: Normal Image Corrections: No attenuation or motion correction applied Summed Stress Score: 0 Summed Rest Score: 0 Summed Difference Score: 0 PERFUSION FINDINGS A small area of slightly decreased tracer uptake was noted in the inferior wall region, with no significant reversibility FUNCTIONAL RESULTS (calculated via Gated SPECT) Stress Image LV EF (%): 65 Stress EDV (mL):149 TID: 1.13 Stress ESV (mL):52 FUNCTIONAL FINDINGS: Segmental wall motion analysis revealing no gross wall motion abnormalities IMPRESSIONS 1. Myocardial perfusion imaging revealing small area of persistent decreased tracer uptake in the inferior wall region suggestive of myocardial scarring versus attenuation artifact. 2. Normal LV ejection fraction of 65%. 3. LV wall motion analysis revealing no gross wall motion abnormalities. 4. Mildly dilated LV cavity, end-systolic volume of 52 ml. Compared to the study from 01/10/2021, there may not be a significant change Dr Eneida Kern MD FACC (Electronically Signed) Final Date: 28 May 2022 13:32 S
[2022-05-28 09:45] VITALS: BP 115/69; PULSE 62
[2022-05-28] MEDS: regadenoson 0.4 Mg/5 ml Syringe IVP (09:45)
== END 2022-05-28 07:46 | disposition home or self-care (01) ==
PROVIDERS: PCP Nurse Practitioner; Visit Provider Nurse Practitioner Family
DX: R06.00 Dyspnea, unspecified (principal)
CPT/HCPCS: 36415; 78452; 93017; 96374; A9500; J2785

== ENCOUNTER → 2022-06-01 11:02 | Outpatient (BNVA) | payer MEDICARE, SELFPAY | PROVIDERS: PCP Nurse Practitioner; Visit Provider Nurse Practitioner Family | DX: I10 Essential (primary) hypertension (principal); R06.00 Dyspnea, unspecified; Z87.891 Personal history of nicotine dependence | CPT/HCPCS: 99214 ==

== ENCOUNTER 2022-09-02 14:00 | Outpatient (CLI) | payer MEDICARE, SELFPAY | END 2022-09-02 14:01 | disposition home or self-care (01) | PROVIDERS: PCP Nurse Practitioner; Visit Provider Nurse Practitioner Family | DX: R06.00 Dyspnea, unspecified (principal) | CPT/HCPCS: 94010; 94726; 94729 ==

== ENCOUNTER 2022-09-15 07:27 | Outpatient (CLI) | payer MEDICARE, SELFPAY ==
--- NOTE | 2022-09-15 07:45 | USCV_ITS ---
Wilbur Zeb Age: 61 Gender: M : 1960 Exam Date: 09/15/2022 07:55 Ordering Phys: Nga Butts Technologist: Sha Fairchild Exam Location: [facility] [place] Indication: dyspnea BP: 110 / 60 HR: 55 Rhythm: Sinus Technical Quality: Adequate MEASUREMENTS (Male / Female) Normal Values 2D ECHO LVOT Diameter 2.0 cm LV Ejection Fraction MOD 2C 70.2 % LV Ejection Fraction 2C AL 69.9 % LA Diameter 3.7 cm LA Width 4.3 cm LA Height 3.5 cm RA Width 4.7 cm RA Height 5.1 cm Aorta at Sinotubular Diameter 2.6 cm IVC Diameter 1.9 cm M-MODE Aortic Annulus Diameter 3.2 cm LA Ao Ratio MM 1.2 MV E Point Septal Separation 1.1 cm DOPPLER AV Peak Velocity 116.3 cm/s LVOT Peak Velocity 103.0 cm/s AV Area Cont Eq vti 2.7 cm squared AV Area Cont Eq pk 2.9 cm squared MV Peak Velocity 116.0 cm/s MV Area PHT 3.9 cm squared Mitral E to A Ratio 0.9 MV E' Velocity 42.5 cm/s Mitral E to MV E' Ratio 8.4 Mitral E to LV E' Lateral Ratio 7.5 Mitral E to LV E' Septal Ratio 9.6 TR Peak Velocity 239.5 cm/s TR Peak Gradient 22.9 mmHg TR Mean Velocity 175.5 cm/s TR Mean Gradient 13.7 mmHg TR Velocity Time Integral 71.9 cm Right Atrial Pressure 3.0 mmHg Pulmonary Artery Systolic Pressu 25.9 mmHg PV Peak Velocity 101.7 cm/s RV Acceleration Time 0.1 s RV Ejection Time 0.4 s RV AcT/ET 0.4 FINDINGS Left Ventricle Normal left ventricular size, systolic function and wall thickness, with no regional wall motion abnormalities. Left ventricular ejection fraction is estimated at 65 %. Normal diastolic function. Right Ventricle Normal right ventricular size and systolic function. RVSP could not be calculated due to incomplete tricuspid regurgitation velocity profile. Right Atrium Normal right atrial size. Left Atrium Normal left atrial size. Mitral Valve Mild mitral annular calcification. No mitral valve stenosis. Trace mitral valve regurgitation. Aortic Valve Aortic valve not well visualized. No aortic valve stenosis. No aortic valve regurgitation. Tricuspid Valve Structurally normal tricuspid valve. Trace tricuspid valve regurgitation. Pulmonic Valve Pulmonic valve not well visualized. Trace pulmonary valve regurgitation. Pericardium No pericardial effusion. Aorta Normal size aortic root and mildly dilated proximal ascending aorta meadured at 40 mm. IVC Normal IVC dimension with >50% respiratory change of the inferior vena cava. CONCLUSIONS 1. Normal left ventricular size, systolic function and wall thickness, with no regional wall motion abnormalities. Left ventricular ejection fraction is estimated at 65 %. Normal diastolic function. 2. Mildly dilated proximal ascending aorta meadured at 40 mm. 3. Compared to study dated 05/11/2020, ascending aorta appears to be dilated now. Sherice Downs MD (Electronically Signed) Final Date: 18 September 2022 13:18 S
== END 2022-09-15 07:28 | disposition home or self-care (01) ==
PROVIDERS: PCP Nurse Practitioner; Visit Provider Nurse Practitioner Family
DX: R06.00 Dyspnea, unspecified (principal)
CPT/HCPCS: 93306

== ENCOUNTER 2022-10-13 07:15 | Outpatient (CLI) | payer MEDICARE, SELFPAY ==
[2022-10-13] VITALS (15 sets, daily range): BP systolic 94–112; BP diastolic 37–63; PULSE 50–72; RESP 14–21; TEMP 37; O2SAT 95–100; BMI 37.2
--- NOTE | 2022-10-13 07:30 | XACV_ITS ---
Ht: 188 cm Wt: 132 kg BSA: 2.67 m2 Gender: Male : 1960 Any Known Allergies: Codeine Exam Priority: Routine Indication(s): - Dyspnea with exertion Procedure(s): Procedure Description: Diagnostic procedure Procedure Description: Left Heart Catheterization Procedure Description: Left ventriculography Procedure Description: Coronary Angiography Diagnostic Cath Status: Elective Diagnostic Findings * INDICATION: 61-year-old man with past medical history of hypertension, DVT on Xarelto who has been having worsening dyspnea on exertion. He cannot walk any significant distance without getting out of breath. His PFTs were obtained that were normal. Stress test done several months ago showed prior infarct/scarring in the inferior wall but no significant ischemia was seen. He has been referred for left heart cath to rule out CAD as cause of his significant symptoms. * No significant disease noted in the Left Main, Left Anterior Descending, Right, or Circumflex coronary arteries. * Coronary angiography shows right dominance. Conclusions 1. No significant disease noted in the Left Main, Left Anterior Descending, Right, or Circumflex coronary arteries. 2. Normal left ventricular systolic function. Ejection fraction of 50%. Recommendations * Patient was in atrial flutter during the procedure. Patient will benefit from antiarrhythmic therapy as outpatient. * Outpatient cardiology follow up in 2-4 weeks. * Aggressive risk factor modification. Interventional RX Recommendation: medical therapy and/or counseling Diagnostic RX Recommendation: medical therapy and/or counseling Anticoagulation: Heparin Ventriculography Ejection Fraction: 50.0 % Pressures Phase:Rest AO : / ( 0 ) @ 9:42:00 AM 143 / 39 ( 66 ) @ 9:46:00 AM / ( -1 ) @ 9:50:00 AM 96 / 57 ( 74 ) @ 9:55:00 AM 96 / 57 ( 68 ) @ 9:55:00 AM 16 / 5 ( 8 ) @ 9:57:00 AM LV : 102 / -3 / 14 @ 9:54:00 AM 101 / -2 / 16 @ 9:55:00 AM 102 / -4 / 15 @ 9:55:00 AM Valves Phase:DefaultPhase AV : 5.0 @ 9:07:02 AM 5.0 @ 9:07:02 AM AV Mean Gradient: 7.0 @ 9:07:02 AM 7.0 @ 9:07:02 AM Clinical Evaluation EBL: 5mL-10mL Procedural Details Procedure Consent Obtained. Admit Source: Out Patient. Current Diagnosis : Stable angina. Pre-Procedure Time Out. Identified patient by full name and date of as verbalized by the patient/guarantor. Does the consent match the physician's order: Yes. Accurate & Complete Informed Consent: Yes. Inpatient/Outpatient History & Physical on Chart: Yes. If H&P is completed, is and addenduem needed: No; If yes, is the addendum complete: N/A. Visualize and Verify Site with Patient/Guarantor: N/A. Relevant Radiology Images available: N/A. The risks, benefits, and alternatives of sedation and/or procedure were discussed by physician. The patient agrees to continue. Procedure started. [facility] Clinical Fraility Score: 3: Managing Well. Electrical Prospecting Observer Indications: Worsening Angina; Dyspnea on Exertion. Chest Pain Symptom Assessment: Atypical Angina. Cardiovascular Instability: No. Correct patient, site and procedure confirmed by cath team. Current diagnosis: Stable angina; Dyspnea on Exertion. PERRLA. 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 Lungs clear x 5 lobes. IV Site on Arrival: 20 gauge in the left anticubital. IV Fluids: 0.9% NaCl at KVO. 0 mL infused prior to manager cardiac cath. Pre Procedural Pulses: bilateral dorsalis pedis was Doppled. Pre Procedural Pulses: bilateral posterior tibial was Doppled. Pre Procedural Pulses: bilateral radial was 2+. Oxygen started at 3liters/min via nasal canula. right groin was prepped with chloroprep then draped in the usual sterile fashion. right radial was prepped with chloroprep then draped in the usual sterile fashion. Physician notified. Baseline sample Acquired. HR: 51 BPM. Family updated by MD prior to the start of the procedure. Physician arrived. Physician scrubbed in. Immediate Pre-Procedure Time Out. Correct Patient: Yes; Correct Procedure: Yes; Correct Site: Yes; Correct Patient Position: Yes; Correct Supplies: Yes; Dried Flammable Prep: Yes; Blood Products Available: N/A;. Lidocaine 1% infiltrated to the right radial. Arterial access obtained. A 5 yi TIG catheter in over wire. Multiple views taken of left coronary artery. Catheter redirected to the RCA. Multiple views taken of right coronary artery. EDP Sample taken: LV Off; HR: 0 BPM; SpO2: 99%. Catheter removed over the wire. A 5 yi 125 cm Straight Pig catheter in over wire. EDP Sample taken: LV Off; HR: 0 BPM; SpO2: 100%. EDP Sample taken: LV 102/-4,14; HR: 58 BPM; SpO2: 100%. LV gram performed in MAKI @ 10 mL/second for a total of 30 mL. Patient EF: Normal. EDP Sample taken: LV 101/-3,16; HR: 58 BPM; SpO2: 100%. Pullback taken: LV 102/-5,15; AO 96/57(74); Mean: 7mmHg, Peak to Peak: 5mmHg, SEP: 18sec/min; HR: 57 BPM; SpO2: 100%. Catheter removed over the wire. Physician review of films. Physician scrubbed out. A TR Band was successful obtaining hemostatsis at the Right Radial artery insertion site. TR band placed. Hemostasis obtained. Post Procedure: Pulses reassessed and unchanged. PERRLA. 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 No VTE prophylaxis required. Medication waste: Lidocaine- 1 ml, Nitro 49.8 mg, Versed- 1 mg, Fentanyl- 100 mcg. Total IV fluids: 250 mL. Fluoro: 4:02. Contrast type used: Omnipaque 300 mg/mL, 150 mL bottle. [id number]. Post-op diagnosis: Non Obstuctive CAD. Complications: None. Estimated blood loss: 5mL-10mL. Responsiveness - Normal response to verbal stimuli; alert and oriented, PERRLA. Airway - Unaffected, no intervention required; spontaneous ventilation. Circulation: W/N/L, pulses unchanged. Nausea/Vomiting: No. Procedure completed. Patient transferred by wheelchair to CPRU. Access Site Site: Right Radial artery Sheath Size: 6 Fr Hemostasis Method: TR Band Hemostasis Success: Successful Procedure Medications Start: 8:41 AM Stop: 8:41 AM Medication: Versed Amount: 1 mg Route: I.V. Start: 8:44 AM Stop: 8:44 AM Medication: Nitrogylcerin Amount: 200 mcg Route: I.A. Start: 8:45 AM Stop: 8:45 AM Medication: Heparin Amount: 5000 units Route: I.V. Start: 8:47 AM Stop: 8:47 AM Medication: 0.9% Saline Amount: 250 ml Route: I.V. bolus I, the attending physician, have reviewed and verified all procedure medications. Yes, all medications given per verbal order History/Risk Factors Hypertension: Yes Peripheral Arterial Disease (PAD): No Myocardial Infarction (TN): No Obesity: Yes Renal Disease: No Prior Interventions PCI: No CABG: No Valve Surgery: No Report Signatures Finalized by Iban Alexander MD on 10/13/2022 10:02 AM
[2022-10-13 07:48] LABS: Basophils % 0.5 %; Eosinophils # 0.1 10^3/uL (0.0-0.8); Eosinophils % 1.2 %; Hematocrit 39.8 % (42.0-52.0); Hemoglobin 12.2 g/dL (11.7-16.6); Lymphocytes # 1.7 10^3/uL (0.8-4.8); Lymphocytes % 29.5 %; Mean Corpuscular HGB Conc 30.7 g/dL (30.0-36.0); Mean Corpuscular Hemoglobin 28.2 pg (28.0-34.0); Mean Corpuscular Volume 92.1 fl (80-94); Mean Platelet Volume 9.4 fL (7.4-10.4); Monocytes # 0.4 10^3/uL (0.2-0.9); Monocytes % 6.2 %; Neutrophils % 62.4 %; Nucleated Red Blood Cells % 0 %; Platelet Count 175 10^3/cmm (130-400); Red Blood Count 4.32 10^6/uL (4.1-5.3); Red Cell Distribution Width 14.3 % (12.1-15.1); White Blood Count 5.6 10^3/uL (4.0-10.0)
[2022-10-13] MEDS: diphenhydrAMINE 50 mg Capsule PO (08:00)
[2022-10-13 08:09] LABS: Anion Gap 13.8 (5-19); Blood Urea Nitrogen 12 mg/dL (8-23); Calcium 9.2 mg/dL (8.5-10.5); Carbon Dioxide 23 mmol/L (22-29); Chloride 110 mmol/L (98-107); Glomerular Filtration Rate 75.7 mL/min (90-130); Glucose 83 mg/dL (65-115); Osmolality Calculated 295 mOsm/kg (285-295); Potassium 3.8 mmol/L (3.5-5.1); Sodium 143 mmol/L (136-145)
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
--- NOTE | 2022-10-13 09:38 | PC.NURSE ---
received pt from [facility]. tr band on right wrist with no bruising or hematoma noted. pt alert and oriented x3. pt educated on restrictions of right wrist. pt stated understanding. pt on vitals monitor and will be monitored per protocol. plan is to dc from [facility] in approx three hours pending successful removal of tr band.
--- NOTE | 2022-10-13 09:43 | ECG_ITS ---
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 Measurements Intervals [place] Rate: 50 P: -1 IN: 220 QRS: 37 QRSD: 113 T: 60 QT: 443 QTc: 407 Interpretive Statements SINUS BRADYCARDIA WITH FIRST DEGREE AV BLOCK LOW QRS VOLTAGE IN PRECORDIAL LEADS [QRS DEFLECTION < 1.0 mV IN CHEST LEADS] POSSIBLE RIGHT VENTRICULAR CONDUCTION DELAY [RSR (QR) IN V1/V2] Compared to ECG 05/11/2020 05:11:11 Low QRS voltage now present Sinus rhythm no longer present Electronically Signed On 10-15-2022 12:24:54 CDT by Eneida Kern M.D. [id number]
--- NOTE | 2022-10-13 12:06 | PC.NURSE ---
Successful removal of TRband. No bruising or hematoma noted. Pt and family educated on restrictions of right wrist with stated understanding.
== END 2022-10-13 12:39 | disposition home or self-care (01) ==
PROVIDERS: Nurse Practitioner Family; PCP Nurse Practitioner; Visit Provider Internal Medicine
DX: I44.0 Atrioventricular block, first degree (principal); R06.00 Dyspnea, unspecified; I10 Essential (primary) hypertension; R00.1 Bradycardia, unspecified; Z86.718 Personal history of other venous thrombosis and embolism; Z79.01 Long term (current) use of anticoagulants; Z87.891 Personal history of nicotine dependence; I48.92 Unspecified atrial flutter; E66.01 Morbid (severe) obesity due to excess calories; Z68.37 Body mass index [BMI] 37.0-37.9, adult
CPT/HCPCS: 36415; 80048; 85025; 93005; 93458; 96361; 96365; 96367; 99152; C1769; C1887; C1894; J1644; J2250; J3010; J3490; J7030; Q0163; Q9967

== ENCOUNTER → 2022-10-27 10:07 | Outpatient (BNVA) | payer MEDICARE, SELFPAY | PROVIDERS: PCP Nurse Practitioner; Visit Provider Nurse Practitioner Family | DX: I10 Essential (primary) hypertension (principal); I48.92 Unspecified atrial flutter; Z86.718 Personal history of other venous thrombosis and embolism; I26.99 Other pulmonary embolism without acute cor pulmonale; Z87.891 Personal history of nicotine dependence | CPT/HCPCS: 36415; 80048 ==

== ENCOUNTER → 2022-10-27 11:14 | Outpatient (BNVA) | payer MEDICARE, SELFPAY | PROVIDERS: PCP Nurse Practitioner; Visit Provider Nurse Practitioner Family | DX: I10 Essential (primary) hypertension (principal); I48.92 Unspecified atrial flutter; Z86.718 Personal history of other venous thrombosis and embolism; I26.99 Other pulmonary embolism without acute cor pulmonale | CPT/HCPCS: 36415; 80048; 93005; 99214 ==

== ENCOUNTER → 2022-11-13 11:10 | Outpatient (BNVA) | payer MEDICARE, SELFPAY | PROVIDERS: PCP Nurse Practitioner; Visit Provider Internal Medicine Cardiovascular Disease | DX: R06.00 Dyspnea, unspecified (principal); I10 Essential (primary) hypertension; G47.9 Sleep disorder, unspecified; Z86.718 Personal history of other venous thrombosis and embolism; Z86.73 Personal history of transient ischemic attack (TIA), and cerebral infarction without residual deficits; Z87.891 Personal history of nicotine dependence | CPT/HCPCS: 99214 ==

== ENCOUNTER 2022-11-18 10:06 | Outpatient (CLI) | payer MEDICARE, SELFPAY ==
--- NOTE | 2022-11-18 10:30 | CTR_ITS ---
PROCEDURE INFORMATION: Exam: CTA Chest With Contrast Exam date and time: 11/18/2022 10:45 AM Age: 62 years old Clinical indication: Condition or disease; Lung condition and disease; Pulmonary embolism; Attributes not specified; Additional info: Pe TECHNIQUE: Imaging protocol: Computed tomographic angiography of the chest with contrast. Exam focused on the arteries. 3D rendering (Not supervised by radiologist): MIP and/or 3D reconstructed images were created by the technologist. Radiation optimization: All CT scans at this facility use at least one of these dose optimization techniques: automated exposure control; mA and/or kV adjustment per patient size (includes targeted exams where dose is matched to clinical indication); or iterative reconstruction. Contrast material: OMNI 350; Contrast volume: 95 ml; Contrast route: INTRAVENOUS (IV); REPORTING DATA: Count of CT and Cardiac NM exams in prior 12 months: This patient has received [address] and 0 known cardiac nuclear medicine studies in the 12 months prior to the current study. COMPARISON: CT angio chest PE protcl [id number] 11/10/2018 1:32 PM RADIATION DOSE METRICS: Total DLP (mGy-cm): 506.24 FINDINGS: Pulmonary arteries: Very good pulmonary arterial opacification. No evidence of intraluminal filling defects to suggest an acute pulmonary embolism. Aorta: Ectatic ascending aorta 36 mm in diameter. Lungs: Unremarkable. No consolidation. No masses. Pleural spaces: Unremarkable. No pneumothorax. No pleural effusion. Heart: Unremarkable. No cardiomegaly. No pericardial effusion. Lymph nodes: Unremarkable. No enlarged lymph nodes. Liver: The fatty liver. Bones/joints: Unremarkable. No acute fracture. Soft tissues: Unremarkable. CT/CT angio chest PE protcl [id number] IMPRESSION: No pulmonary embolism.
[2022-11-18] MEDS: iohexol 350 mg/mL 500 mL Btl (per mL) IV (10:54)
== END 2022-11-18 10:07 | disposition home or self-care (01) ==
PROVIDERS: PCP Nurse Practitioner; Visit Provider Nurse Practitioner Family
DX: I26.99 Other pulmonary embolism without acute cor pulmonale (principal); Z86.718 Personal history of other venous thrombosis and embolism
CPT/HCPCS: 36415; 71275; 80048; Q9967

== ENCOUNTER → 2022-11-30 10:56 | Outpatient (BNVA) | payer MEDICARE, SELFPAY | PROVIDERS: PCP Nurse Practitioner; Visit Provider Nurse Practitioner | DX: M10.9 Gout, unspecified (principal) | CPT/HCPCS: 80061; 84550 ==

== ENCOUNTER → 2023-01-25 16:18 | Outpatient (BNVA) | payer MEDICARE, SELFPAY | PROVIDERS: PCP Nurse Practitioner; Visit Provider Nurse Practitioner | DX: M10.9 Gout, unspecified (principal) | CPT/HCPCS: 80053; 85025 ==

== ENCOUNTER 2023-02-11 09:55 | Outpatient (CLI) | payer MEDICARE, SELFPAY ==
--- NOTE | 2023-02-11 10:03 | XR_ITS ---
WS: [id number] Exam: XR chest 2V* [id number] Date/Time of Exam: 02/11/2023 10:06 AM Reason For Exam: R05.9 - Cough, unspecified Comparison 05/10/2020. Findings: The lungs are clear and fully expanded. Costophrenic angles are sharp. No infiltrates. Bronchovascula r relief appears normal. Cardiac silhouette is unremarkable. Bony elements are intact. IMPRESSION: Unremarkable chest radiograph.
== END 2023-02-11 09:56 | disposition home or self-care (01) ==
PROVIDERS: PCP Nurse Practitioner; Visit Provider Nurse Practitioner
DX: R05.9 Cough, unspecified (principal)
CPT/HCPCS: 71046

== ENCOUNTER → 2023-05-13 14:40 | Outpatient (BNVA) | payer MEDICARE, SELFPAY | PROVIDERS: PCP Nurse Practitioner; Visit Provider Internal Medicine Cardiovascular Disease | DX: I48.91 Unspecified atrial fibrillation (principal); I48.92 Unspecified atrial flutter; I10 Essential (primary) hypertension; I82.409 Acute embolism and thrombosis of unspecified deep veins of unspecified lower extremity; R06.00 Dyspnea, unspecified; R00.2 Palpitations; I26.99 Other pulmonary embolism without acute cor pulmonale; Z86.73 Personal history of transient ischemic attack (TIA), and cerebral infarction without residual deficits; Z79.01 Long term (current) use of anticoagulants | CPT/HCPCS: 99214 ==

== ENCOUNTER → 2023-05-17 10:52 | Outpatient (BNVA) | payer MEDICARE, SELFPAY | PROVIDERS: PCP Nurse Practitioner; Visit Provider Nurse Practitioner | DX: Z13.6 Encounter for screening for cardiovascular disorders (principal); R45.4 Irritability and anger; E55.9 Vitamin D deficiency, unspecified | CPT/HCPCS: 80053; 80061; 82306; 85025 ==

== ENCOUNTER → 2023-09-15 13:19 | Outpatient (BNVA) | payer MEDICARE, SELFPAY | PROVIDERS: PCP Nurse Practitioner; Visit Provider Nurse Practitioner | DX: I10 Essential (primary) hypertension (principal); M10.9 Gout, unspecified | CPT/HCPCS: 80053; 80061; 84550; 85025 ==

== ENCOUNTER → 2023-10-25 11:32 | Outpatient (BNVA) | payer MEDICARE, SELFPAY | PROVIDERS: PCP Nurse Practitioner; Visit Provider Nurse Practitioner | DX: R73.9 Hyperglycemia, unspecified (principal) | CPT/HCPCS: 83036 ==

== ENCOUNTER → 2024-02-24 13:38 | Outpatient (BNVA) | payer MEDICARE, SELFPAY | PROVIDERS: PCP Nurse Practitioner; Visit Provider Nurse Practitioner | DX: R19.7 Diarrhea, unspecified (principal) | CPT/HCPCS: 80053; 80061; 83735; 85025 ==

== ENCOUNTER → 2024-02-29 10:53 | Outpatient (BNVA) | payer MEDICARE, SELFPAY | PROVIDERS: PCP Nurse Practitioner; Visit Provider Nurse Practitioner | DX: R19.7 Diarrhea, unspecified (principal) | CPT/HCPCS: 81000; 87045; 87427; 87449 ==

== ENCOUNTER → 2024-05-09 10:40 | Outpatient (BNVA) | payer MEDICARE, SELFPAY | PROVIDERS: PCP Nurse Practitioner; Visit Provider Internal Medicine Cardiovascular Disease | DX: I48.91 Unspecified atrial fibrillation (principal); I48.92 Unspecified atrial flutter; R07.9 Chest pain, unspecified; I10 Essential (primary) hypertension; Z79.01 Long term (current) use of anticoagulants; Z86.711 Personal history of pulmonary embolism; Z87.891 Personal history of nicotine dependence | CPT/HCPCS: 99214 ==

== ENCOUNTER 2024-06-02 14:00 | Outpatient (CLI) | payer MEDICARE, SELFPAY ==
--- NOTE | 2024-06-02 14:03 | USCV_ITS ---
Wilbur Zeb Age: 63 Gender: M : 1960 Exam Date: 06/02/2024 14:18 Ordering Phys: Ann Mcpherson MD ([email or web address]) Technologist: CT [place] [facility] [place]: sob BP: 147 / 81 HR: 70 Rhythm: Sinus Technical Quality: Adequate MEASUREMENTS (Male / Female) Normal Values 2D ECHO LVOT Diameter 2.3 cm LV Ejection Fraction MOD 4C 68.9 % LV Ejection Fraction MOD 2C 63.1 % LV Ejection Fraction 2C AL 63.8 % LA Diameter 3.4 cm RA Systolic Volume 4C AL 61.7 ml RA Systolic Volume 4C MOD 62.8 ml LA Sys Volume AL 51.6 cm cubed LA Sys Volume Index AL 19.4 cm cubed/m squared Aorta at Sinotubular Diameter 2.9 cm M-MODE LA Ao Ratio MM 1.4 AV Cusp Separation MM 2.5 cm DOPPLER AV Peak Velocity 139.0 cm/s LVOT Peak Velocity 115.0 cm/s AV Area Cont Eq vti 3.7 cm squared AV Area Cont Eq pk 3.3 cm squared MV Peak Velocity 96.0 cm/s MV Area PHT 2.8 cm squared Mitral E to A Ratio 0.8 TR Peak Velocity 154.0 cm/s TR Peak Gradient 9.5 mmHg TR Mean Velocity 86.0 cm/s TR Mean Gradient 3.9 mmHg TR Velocity Time Integral 32.7 cm TV Peak E Velocity 69.0 cm/s PV Peak Velocity 112.0 cm/s FINDINGS Left Ventricle Normal left ventricular size, systolic function and wall thickness, with no regional wall motion abnormalities. Left ventricular ejection fraction is estimated at 60 %. Grade I/IV diastolic dysfunction (abnormal relaxation filling pattern), normal to mildly elevated filling pressures. Right Ventricle The right ventricle is normal in size and function. Right Atrium The right atrium is normal in size. Left Atrium Mildly increased left atrial size. Mitral Valve Structurally normal mitral valve without significant stenosis or prolapse. There is no mitral regurgitation. Aortic Valve Moderate aortic valve calcification. No aortic valve stenosis. Trace aortic valve regurgitation. Tricuspid Valve Mild tricuspid valve regurgitation. Pulmonic Valve Structurally normal pulmonic valve without significant stenosis. There is no pulmonic regurgitation. Pericardium Normal pericardium without effusion. Aorta Normal ascending aorta dimension. IVC The inferior vena cava appears normal. CONCLUSIONS Normal left ventricular size, systolic function and wall thickness, with no regional wall motion abnormalities. Left ventricular ejection fraction is estimated at 60 %. Grade I/IV diastolic dysfunction (abnormal relaxation filling pattern), normal to mildly elevated filling pressures. Mildly increased left atrial size. Moderate aortic valve calcification. No aortic valve stenosis. Trace aortic valve regurgitation. There is no pericardial effusion. Right atrial pressure is around 5 mm of mercury. Ann Mcpherson MD (Electronically Signed) Final Date: 02 June 2024 16:54 S
== END 2024-06-02 14:01 | disposition home or self-care (01) ==
PROVIDERS: PCP Nurse Practitioner; Visit Provider Internal Medicine Cardiovascular Disease
DX: R06.02 Shortness of breath (principal); R93.1 Abnormal findings on diagnostic imaging of heart and coronary circulation; I35.8 Other nonrheumatic aortic valve disorders; I07.1 Rheumatic tricuspid insufficiency
CPT/HCPCS: 93306

== ENCOUNTER 2024-06-14 08:49 | Outpatient (CLI) | payer MEDICARE, SELFPAY ==
--- NOTE | 2024-06-14 | ECG_ITS ---
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 Interpretive Statements LEXISCAN SESTAMIBI STRESS TEST Procedure: At the baseline, the blood pressure was 105/68 mmHg with a heart rate of 60 bpm. The electrocardiogram showed normal sinus rhythm, normal axis with normal ST and T's. The Lexiscan was infused over a period of 20 seconds. A total of 0.4 mg of Lexiscan was infused. The stress phase was continued for a total of 5 minutes. Heart rate was at the end of stress phase was 69 bpm and a blood pressure of 144/72 mmHg. The EKG at the peak infusion revealed normal sinus rhythm with no significant ST-T wave changes. Sestamibi was injected 20 seconds after the Lexiscan infusion. Blood pressure at the end of recovery phase was 136/68 mmHg with a heart rate of 69 bpm. Conclusion: 1. Normal EKG response to Lexiscan infusion 2. No Lexiscan induced chest pain or cardiac arrhythmia. 3. Normal blood pressure and heart rate response. 4. Sestamibi/sestamibi perfusion scan pending; see separate report. Electronically Signed On 07-05-2024 11:07:42 CDT by Iban Alexander M.D. [id number]
[2024-06-14 09:18] VITALS: BMI 35.6
--- NOTE | 2024-06-14 09:20 | NMCV_ITS ---
NM patricia perf SPECT r/s* [id number] Zeb Bowles Age: 63 Gender: M : 1960 Exam Date: 06/14/2024 10:00 Ordering Phys: Ann Mcpherson MD ([email or web address]) Technologist: DANA Tabor Exam Location: [facility] Indications: cp STRESS TEST Please see separate stress test report in [facility] for full findings IMAGE PROTOCOL Rest/Stress 1 Lexiscan Day Radiopharmaceutical Dose (mCi) Administration Site Administered by Rest: Tc-99m 10.9 IV DANA Tabor Sestamibi Stress:Tc-99m 32.9 IV Colette Cervantes, AGENCY SERVICE COORDINATOR Sestamibi Rest: 14-Jun-2024 60 Discovery 630 Stress: 14-Jun-2024 30 Discovery 630 0.4mg Lexiscan. Images obtained in supine and prone position. SPECT RESULTS Technical Quality: Good Raw Data Analysis: Normal Image Corrections: No attenuation or motion correction applied Summed Stress Score: 0 Summed Rest Score: 0 Summed Difference Score: 0 PERFUSION FINDINGS SPECT images demonstrate homogeneous tracer distribution throughout the myocardium. FUNCTIONAL RESULTS (calculated via Gated SPECT) Stress Image LV EF (%): 64 Stress EDV (mL):146 TID: 1.03 Stress ESV (mL):53 FUNCTIONAL FINDINGS: There is normal left ventricular systolic function. IMPRESSIONS 1. Normal myocardial perfusion imaging with no evidence of ischemia 2. LV systolic fucntion is normal Iban Alexander MD (Electronically Signed) Final Date: 19 June 2024 21:41 S
[2024-06-14] MEDS: regadenoson 0.4 Mg/5 ml Syringe IVP (10:34)
[2024-06-14 10:52] VITALS: BP 107/73; PULSE 67
== END 2024-06-14 08:50 | disposition home or self-care (01) ==
LOC: CDL 08:50
PROVIDERS: PCP Nurse Practitioner; Visit Provider Internal Medicine Cardiovascular Disease
DX: R06.02 Shortness of breath (principal); R07.9 Chest pain, unspecified
CPT/HCPCS: 36415; 78452; 93017; 96374; A9500; J2785

== ENCOUNTER 2024-06-20 07:50 | Outpatient (CLI) | payer MEDICARE, SELFPAY ==
--- NOTE | 2024-06-20 08:00 | CT_ITS ---
WS: [id number] CT HEAD NONCONTRAST HISTORY: R53.1 - Weakness TECHNIQUE: Contiguous axial imaging performed through the brain. Bone and soft tissue windows. Sagittal and coronal reformats reviewed. All CT scans at [facility] use at least one of these dose optimization techniques: automated exposure control; mA and/or kV adjustment per patient size (includes targeted exams where dose is matched to clinical indication); or iterative reconstruction. DLP: 1138.58 mGy.cm COMPARISON: 05/10/2020 No acute intracranial hemorrhage, midline shift or mass effect. Very mild volume loss and atrophy and small vessel disease. No lacunar infarcts or larger infarcts. Mild cerebellar atrophy. Ventricles: Normal size with no hydrocephalus. No inferior displacement of the cerebellar tonsils. Paranasal sinuses: As visualized are clear. Mastoid air cells: Well pneumatized. Calvarium and scalp: Skull is intact with no soft tissue edema or swelling. CT/CT head wo con* [id number] IMPRESSION: 1. No acute intracranial hemorrhage or edema. 2. No prior infarct. 3. Mild cerebral and cerebellar volume loss and small vessel disease.
== END 2024-06-20 07:51 | disposition home or self-care (01) ==
LOC: RAD 07:59
PROVIDERS: PCP Nurse Practitioner; Visit Provider Nurse Practitioner
DX: R53.1 Weakness (principal); R93.0 Abnormal findings on diagnostic imaging of skull and head, not elsewhere classified; G31.89 Other specified degenerative diseases of nervous system
CPT/HCPCS: 70450

== ENCOUNTER 2024-08-02 23:40 | Emergency (ER) | payer MEDICARE, SELFPAY ==
[2024-08-02 23:41] VITALS: BP 106/71; PULSE 78; RESP 18; TEMP 35.6; O2SAT 98; BMI 37.3
--- NOTE | 2024-08-03 00:05 | CTR_ITS ---
PROCEDURE INFORMATION: Exam: CT Head Without Contrast Exam date and time: 08/03/2024 12:28 AM Age: 63 years old Clinical indication: Alteration of consciousness; Other: Seizure activity; Additional info: Seizure like activity TECHNIQUE: Imaging protocol: Computed tomography of the head without contrast. Radiation optimization: All CT scans at this facility use at least one of these dose optimization techniques: automated exposure control; mA and/or kV adjustment per patient size (includes targeted exams where dose is matched to clinical indication); or iterative reconstruction. COMPARISON: CT head wo con* [id number] 06/20/2024 8:12 AM RADIATION DOSE METRICS: Total DLP (mGy-cm): 1366.38 FINDINGS: Brain: Periventricular white matter changes likely related to chronic ischemic small vessel disease. No intracranial mass, hemorrhage or recent infarct. Cerebral ventricles: No ventriculomegaly. Paranasal sinuses: Mild mucosal thickening of the maxillary sinuses. No fluid levels. Mastoid air cells: Visualized mastoid air cells are well aerated. Bones: Unremarkable. No acute fracture. Soft tissues: Unremarkable. CT/CT head wo con* [id number] IMPRESSION: No acute intracranial abnormality
--- NOTE | 2024-08-03 00:05 | XRR_ITS ---
PROCEDURE INFORMATION: Exam: XR Chest Exam date and time: 08/03/2024 12:40 AM Age: 63 years old Clinical indication: Other: Seizure; Additional info: Seizure like activity TECHNIQUE: Imaging protocol: Radiologic exam of the chest. Views: 1 view. COMPARISON: CR XR chest 2V* [id number] 02/11/2023 10:11 AM FINDINGS: Lungs: Unremarkable. No consolidation. Pleural spaces: Unremarkable. No pleural effusion. No pneumothorax. Heart/Mediastinum: Unremarkable. No cardiomegaly. Bones/joints: Unremarkable. XR/XR chest 1V portable [id number] IMPRESSION: No acute findings.
[2024-08-03 00:17] LABS: Basophils % 0.5 %; Eosinophils # 0.1 10^3/uL (0.0-0.8); Eosinophils % 1.7 %; Hematocrit 34.3 % (37-53); Lymphocytes # 1.5 10^3/uL (0.8-4.8); Lymphocytes % 25.7 %; Mean Corpuscular HGB Conc 31.5 g/dL (30-55); Mean Corpuscular Hemoglobin 28.9 pg (27-33); Mean Corpuscular Volume 91.7 fl (82-101); Mean Platelet Volume 9.6 fL (7.4-10.4); Monocytes # 0.4 10^3/uL (0.2-0.9); Monocytes % 7.3 %; Neutrophils # 3.72 10^3/uL (1.8-7.7); Neutrophils % 64.6 %; Nucleated Red Blood Cells % 0 %; Platelet Count 162 10^3/cmm (157-399); Red Blood Count 3.74 10^6/uL (3.85-5.65); Red Cell Distribution Width 15.1 % (12.1-15.1); White Blood Count 5.76 10^3/uL (3.29-11.43)
--- NOTE | 2024-08-03 00:18 | ECG_ITS ---
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 Measurements Intervals [place] Rate: 80 P: 131 WA: 222 QRS: 169 QRSD: 95 T: 151 QT: 377 QTc: 436 Interpretive Statements SINUS RHYTHM WITH FIRST DEGREE AV BLOCK POSSIBLE RIGHT VENTRICULAR CONDUCTION DELAY [RSR (QR) IN V1/V2] LATERAL MYOCARDIAL INFARCTION , PROBABLY RECENT [40+ ms Q WAVE AND/OR ST/T ABNORMALITY IN I/aVL/V5/V6] ACUTE CO Compared to ECG 10/27/2022 11:33:15 First degree AV block now present Myocardial infarct finding now present Electronically Signed On 08-04-2024 08:54:13 CDT by Eneida Kern M.D. [id number]
[2024-08-03] MEDS: acetaminophen 1,000 MG/100 ML PIGGYBACK 400 MG IV (00:23)
[2024-08-03] MEDS: sodium chloride 0.9% 1,000 ML 999 ML IV (00:23)
[2024-08-03 00:28] LABS: Troponin(5th) Baseline 12 ng/L (0-15)
[2024-08-03 00:31] LABS: Lactic Sepsis W/Reflex 1.1 mmol/L (0.5-2.2)
[2024-08-03 00:35] LABS: Alanine Aminotransferase 26 U/L (0-41); Albumin Level 4.4 g/dL (3.5-5.2); Alkaline Phosphatase 47 U/L (40-130); Anion Gap 16.9 (5-19); Aspartate Amino Transferase 30 U/L (0-40); Blood Urea Nitrogen 14 mg/dL (8-23); Calcium 9.1 mg/dL (8.5-10.5); Carbon Dioxide 19 mmol/L (22-29); Chloride 110 mmol/L (98-107); Creatinine Clr Calc Pharmacy 85.2155; Globulin 2.3 g/dL (1.3-4.6); Glomerular Filtration Rate 55.6 mL/min (90-130); Glucose 111 mg/dL (65-115); Osmolality Calculated 295 mOsm/kg (285-295); Potassium 3.9 mmol/L (3.5-5.1); Sodium 142 mmol/L (136-145); Total Bilirubin 0.3 mg/dL (0.15-1.2); Total Protein 6.7 g/dL (6.6-8.7)
[2024-08-03 01:25] VITALS: BP 118/65; PULSE 74; RESP 16; O2SAT 95
[2024-08-03 01:27] LABS: Troponin 5 2HR 11.37 ng/L (0-15)
[2024-08-03 01:29] LABS: Troponin 5 2HR Delta -0.63 ABS# (0-10)
[2024-08-03 03:15] VITALS: BP 95/48; PULSE 72; RESP 16; O2SAT 95
[2024-08-03 03:16] VITALS: BP 95/48; PULSE 76; RESP 18; O2SAT 96
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
== END 2024-08-03 03:25 | disposition home or self-care (01) ==
PROVIDERS: Emergency Provider Student in an Organized Health Care Education/Training Program; PCP Nurse Practitioner
DX: R40.4 Transient alteration of awareness (principal); Z79.82 Long term (current) use of aspirin; Z87.891 Personal history of nicotine dependence; I10 Essential (primary) hypertension
CPT/HCPCS: 36415; 70450; 71045; 80053; 83605; 84484; 85025; 93005; 96365; 99285; J0131; J7030

== ENCOUNTER → 2024-08-08 13:10 | Outpatient (BNVA) | payer MEDICARE, SELFPAY | PROVIDERS: PCP Nurse Practitioner; Visit Provider Internal Medicine Cardiovascular Disease | DX: I73.9 Peripheral vascular disease, unspecified (principal); I48.91 Unspecified atrial fibrillation; I48.92 Unspecified atrial flutter; Z86.718 Personal history of other venous thrombosis and embolism; Z79.01 Long term (current) use of anticoagulants; Z79.82 Long term (current) use of aspirin | CPT/HCPCS: 99214 ==

== ENCOUNTER → 2024-08-21 12:13 | Outpatient (BNVA) | payer MEDICARE, SELFPAY | PROVIDERS: PCP Nurse Practitioner; Visit Provider Nurse Practitioner | DX: Z12.5 Encounter for screening for malignant neoplasm of prostate (principal); I10 Essential (primary) hypertension | CPT/HCPCS: 80061; G0103 ==

== ENCOUNTER 2024-08-24 08:00 | Outpatient (CLI) | payer MEDICARE, SELFPAY ==
--- NOTE | 2024-08-24 08:30 | USR_ITS ---
PROCEDURE INFORMATION: Exam: US Duplex Bilateral Lower Extremity Arteries Exam date and time: 08/24/2024 8:40 AM Age: 63 years old Clinical indication: Pain; Leg, lower; Bilateral; Additional info: Bilateral leg pain TECHNIQUE: Imaging protocol: Real-time ultrasound scan of the arteries of the bilateral lower extremities with 2-D skaggs scale, color Doppler flow and spectral waveform analysis. Images documented and saved. COMPARISON: No relevant prior studies available. FINDINGS: Right common femoral artery: No occlusion or significant stenosis. Normal waveform. Right superficial femoral artery: No occlusion or significant stenosis. Normal waveform. Right popliteal artery: No occlusion or significant stenosis. Normal waveform. Right calf/foot arteries: No occlusion or significant stenosis in the visualized arteries. Normal waveforms. Dorsalis pedis artery is patent. Left common femoral artery: No occlusion or significant stenosis. Normal waveform. Left superficial femoral artery: No occlusion or significant stenosis. Normal waveform. Left popliteal artery: No occlusion or significant stenosis. Normal waveform. Left calf/foot arteries: No occlusion or significant stenosis in the visualized arteries. Normal waveforms. Dorsalis pedis artery is patent. Right BLANCHE 1.1. Left BLANCHE 1.0. US/CV arterial duplex [facility] [id number] IMPRESSION: No stenosis or occlusion.
== END 2024-08-24 08:01 | disposition home or self-care (01) ==
PROVIDERS: PCP Nurse Practitioner; Visit Provider Internal Medicine Cardiovascular Disease
DX: M79.604 Pain in right leg (principal); M79.605 Pain in left leg
CPT/HCPCS: 93925